=== PATIENT | male | born 1955 | race Caucasian/White ===

== ENCOUNTER → 2016-12-01 | Outpatient (CLI) | payer OTHER ==
[~2016-12-01] MED LIST: ACET325T96 PO; ALBU18002 INH; DONE1TAB26 PO; DOXY-300 PO; FLUT0.0529 NAE; MULTCAP42 PO; OXYM0.0592 NAE; ZNTT/150 PO; nebulizer INH
--- NOTE | 2016-12-01 14:44 | PULMONARY FUNCTION TEST ---
INTERPRETATION: The spirometry reveals mild obstruction with no change in the airflow with the use of albuterol. Reduced vital capacity and force vital capacity suggest a restrictive impairment of severe degree. The FRC is markedly elevated. The study may be erroneous. The diffusion capacity is not measured. This study suggests the patient has a mild degree of obstructive airways disorder with probable marked restrictive disorder. Repeat lung volumes and diffusion capacity would be recommended as clinically warranted.
--- NOTE | 2016-12-02 12:15 | CODING QUERY NO DIAGNOSIS ---
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 Please assist us with providing a diagnosis/symptom for the test(s) below: A diagnosis/symptom was not documented on your Order. A valid diagnosis/symptom is required to bill all insurances. Please remember that we are unable to code a diagnosis of rule out, probable, possible, questionable, or suspected. DOS 12/01/16 Tests that require a diagnosis: * PRE & POST PFT DIAGNOSIS: * PULM FUNCT DIFFUSION DIAGNOSIS: Provider Signature: Date: Thank you Ritika Baldwin Health Information Management Once completed, please kindly fax back to [phone] For questions please call [phone]
== END | disposition home or self-care (01) ==
LOC: C.RC 09:44
PROVIDERS: ATTEND Internal Medicine Pulmonary Disease
DX: Z01.89 Encounter for other specified special examinations (principal)

== ENCOUNTER → 2017-03-01 | Outpatient (CLI) | payer OTHER ==
[2017-03-01 09:47] LABS: BASO % 0.5 %; BASO ABS # 0.04 K/uL (0-0.2); COMPLETE YES; EOS % 2.5 %; HEMATOCRIT 48.4 % (42-52); IG% 1.1 %; LYMPH % 42.4 %; LYMPH ABS # 3.17 K/uL (1.2-3.4); MEAN CELL VOLUME 91.1 fL (80-100); MEAN CORPUSCULAR HEMOGLOBIN 30.1 pg (25-34); MEAN CORPUSCULAR HGB CONC 33.1 g/dl (32-36); MONO % 8.3 %; NEUT % 45.2 %; PLATELET COUNT 215 K/uL (130-400); RED BLOOD COUNT 5.31 M/uL (4.7-6.1); WHITE BLOOD COUNT 7.47 K/uL (4.8-10.8)
[2017-03-01 10:06] LABS: ALB/GLOB RATIO 1.1 (0.9-2); ALKALINE PHOSPHATASE 58 U/L (45-117); AST/SGOT 29 U/L (15-37); BLOOD UREA NITROGEN 12 mg/dl (7-18); BUN/CREATININE RATIO 16.1 (10-20); CALCIUM 9.1 mg/dl (8.5-10.1); CARBON DIOXIDE 35 mmol/L (21-32); CHLORIDE 108 mmol/L (98-107); CREATININE 0.75 mg/dl (0.60-1.40); GLUCOSE 80 mg/dl (70-99); HDL CHOLESTEROL 42 mg/dl; POTASSIUM 4.4 mmol/L (3.5-5.1); SODIUM 146 mmol/L (136-145)
[2017-03-01 10:09] LABS: ALT/SGPT 70 U/L (12-78); CHOLESTEROL 283 mg/dl (0-200); CHOLESTEROL/HDL RATIO 6.7; TRIGLYCERIDES 425 mg/dl (0-150)
== END ==
LOC: C.LABCC 09:15
PROVIDERS: ATTEND Internal Medicine
DX: E78.5 Hyperlipidemia, unspecified (principal); M62.81 Muscle weakness (generalized)

== ENCOUNTER → 2017-07-04 | Outpatient (CLI) | payer OTHER ==
[2017-07-04 12:03] LABS: ALT/SGPT 84 U/L (12-78); BLOOD UREA NITROGEN 13 mg/dl (7-18); BUN/CREATININE RATIO 16.2 (10-20); CALCIUM 9.1 mg/dl (8.5-10.1); CARBON DIOXIDE 33 mmol/L (21-32); CHLORIDE 108 mmol/L (98-107); CHOLESTEROL 179 mg/dl (0-200); CREATININE 0.78 mg/dl (0.60-1.40); GLUCOSE 87 mg/dl (70-99); SODIUM 144 mmol/L (136-145)
[2017-07-04 12:06] LABS: ALB/GLOB RATIO 1.1 (0.9-2); ALKALINE PHOSPHATASE 66 U/L (45-117); AST/SGOT 36 U/L (15-37); CHOLESTEROL/HDL RATIO 4.3; HDL CHOLESTEROL 42 mg/dl; LDL CHOLESTEROL CALCULATED 88 mg/dl; TRIGLYCERIDES 246 mg/dl (0-150); VERY LOW DENSITY LIPOPROT CALC 49 mg/dl
== END | disposition home or self-care (01) ==
LOC: C.LABCC 11:23
PROVIDERS: ATTEND Internal Medicine
DX: E78.5 Hyperlipidemia, unspecified (principal)

== ENCOUNTER → 2017-07-28 | Outpatient (CLI) | payer OTHER ==
[2017-07-28 17:07] LABS: URINE APPEARANCE CLEAR (CLEAR); URINE BILIRUBIN NEG (NEG); URINE COLOR YELLOW; URINE NITRITE NEG (NEG); URINE SPECIFIC GRAVITY 1.022 (1.000-1.030); UROBILINOGEN NEG (NEG)
[2017-07-28 17:12] LABS: MANUAL MICROSCOPIC REQUIRED? NO; REVIEW REQ? NO
== END ==
LOC: C.LABSPEC 16:28
PROVIDERS: ATTEND Internal Medicine
DX: R41.82 Altered mental status, unspecified (principal)

== ENCOUNTER → 2017-07-28 | Outpatient (CLI) | payer OTHER ==
[2017-07-28 23:37] LABS: BASO % 0.3 %; BASO ABS # 0.03 K/uL (0-0.2); COMPLETE YES; EOS % 1.7 %; HEMATOCRIT 47.7 % (42-52); IG% 0.3 %; LYMPH % 29.8 %; LYMPH ABS # 2.57 K/uL (1.2-3.4); MEAN CELL VOLUME 90.7 fL (80-100); MEAN CORPUSCULAR HEMOGLOBIN 29.3 pg (25-34); MEAN CORPUSCULAR HGB CONC 32.3 g/dl (32-36); MEAN PLATELET VOLUME 10.7 fL (7.4-10.4); MONO % 10.2 %; NEUT % 57.7 %; PLATELET COUNT 163 K/uL (130-400); RED BLOOD COUNT 5.26 M/uL (4.7-6.1); WHITE BLOOD COUNT 8.62 K/uL (4.8-10.8)
[2017-07-29 00:02] LABS: ALT/SGPT 107 U/L (12-78); BLOOD UREA NITROGEN 11 mg/dl (7-18); BUN/CREATININE RATIO 15.3 (10-20); CARBON DIOXIDE 30 mmol/L (21-32); CHLORIDE 107 mmol/L (98-107); CREATININE 0.73 mg/dl (0.60-1.40); GLUCOSE 102 mg/dl (70-99); POTASSIUM 3.8 mmol/L (3.5-5.1); SODIUM 144 mmol/L (136-145)
[2017-07-29 00:12] LABS: ALB/GLOB RATIO 0.9 (0.9-2); ALKALINE PHOSPHATASE 67 U/L (45-117); AST/SGOT 69 U/L (15-37)
== END ==
LOC: C.LABCC 11:03
PROVIDERS: ATTEND Internal Medicine
DX: R05 Cough (principal); R29.6 Repeated falls

== ENCOUNTER 2017-12-15 09:34 | Emergency (ER) | payer OTHER ==
[~2017-12-15] VITALS: Ht 165.1 cm; Wt 72.5 kg
[~2017-12-15 09:34] MED LIST changes: +ACET-1693 PO; -ACET325T96 PO; +RANI150T85 PO; -ZNTT/150 PO
[2017-12-15 09:49] VITALS: TEMP 36.9; Ht 165.1 cm; Wt 72.5 kg
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
[2017-12-15 10:06] LABS: BASO % 0.3 %; BASO ABS # 0.02 K/uL (0-0.2); EOS % 3.3 %; EOS ABS # 0.26 K/uL (0-0.5); HEMATOCRIT 51.3 % (42-52); HEMOGLOBIN 17.5 g/dL (14.0-18.0); IG# 0.02 K/uL (0.00-0.02); LYMPH % 28.4 %; LYMPH ABS # 2.21 K/uL (1.2-3.4); MEAN CELL VOLUME 91.4 fL (80-100); MEAN CORPUSCULAR HEMOGLOBIN 31.2 pg (25-34); MEAN CORPUSCULAR HGB CONC 34.1 g/dl (32-36); MEAN PLATELET VOLUME 9.9 fL (7.4-10.4); MONO % 5.3 %; MONO ABS # 0.41 K/uL (0.11-0.59); NEUT % 62.4 %; NEUT ABS # 4.85 K/uL (1.4-6.5); PLATELET COUNT 153 K/uL (130-400); RED CELL DISTRIBUTION WIDTH CV 14.6 % (11.5-14.5); RED CELL DISTRIBUTION WIDTH SD 49.1 fL (36.4-46.3); WHITE BLOOD COUNT 7.77 K/uL (4.8-10.8)
[2017-12-15 10:20] LABS: BLOOD UREA NITROGEN 13 mg/dl (7-18); CREATININE 0.86 mg/dl (0.60-1.40); GLUCOSE 119 mg/dl (70-99)
[2017-12-15 10:21] LABS: ALBUMIN 3.6 gm/dl (3.4-5.0); ALT/SGPT 68 U/L (12-78); CALCIUM 9.5 mg/dl (8.5-10.1); CARBON DIOXIDE 31 mmol/L (21-32); POTASSIUM 3.7 mmol/L (3.5-5.1); SODIUM 141 mmol/L (136-145)
[2017-12-15 10:26] LABS: ALKALINE PHOSPHATASE 60 U/L (45-117); AST/SGOT 35 U/L (15-37)
[2017-12-15 10:40] LABS: PTT PATIENT 24.8 SECONDS (21.0-31.0)
--- NOTE | 2017-12-15 10:46 | DIAGNOSTIC IMAGING REPORT ---
CERVICAL SPINE W/O CT DOSE: 508.86 mGycm HISTORY: Trauma fall, right head injury TECHNIQUE: Multiaxial CT images of the cervical spine were performed and reformatted in the sagittal and coronal plane without the use of contrast. A dose lowering technique was utilized adhering to the principles of ALARA. COMPARISON: 01/27/2016 FINDINGS: Moderate degenerative change throughout the entire cervical region. Cervical scoliosis possibly of the base of muscular spasm. No evidence for compression deformity. Degenerative disc change of the lower cervical region. IMPRESSION: Degenerative change. Muscle spasm with secondary scoliosis. No acute posttraumatic abnormality. The above report was generated using voice recognition software. It may contain grammatical, syntax or spelling errors. Electronically signed by: Ryan Pitts M.D. 12/15/2017 10:45 AM Dictated Date/Time: 12/15/2017 10:43 AM
--- NOTE | 2017-12-15 10:48 | DIAGNOSTIC IMAGING REPORT ---
HEAD WITHOUT CONTRAST (CT) CLINICAL HISTORY: 62 years-old Male with AMS. Acutely altered mental status with recent fall TECHNIQUE: Multiple axial CT images of the head were obtained without contrast. A dose lowering technique was utilized adhering to the principles of ALARA. CT DOSE: 788.63 mGycm COMPARISON: CT cervical spine of same day, CT head 01/25/2016. FINDINGS: No acute intracranial hemorrhage, midline shift, intracranial mass, hydrocephalus, territorial ischemia or abnormal extra-axial collection. Mild atrophy. Ill-defined areas of low-attenuation within the area ventricular white matter suggests chronic microvascular ischemic changes. Vascular calcifications are seen at the level of the skull base. The calvarium is intact. The mastoid air cells, and middle ear cavities are clear. Mild mucoperiosteal thickening of the bilateral maxillary and ethmoid sinuses. Mild rightward bowing and spurring of the nasal septum. Mild posterior scalp soft tissue swelling. IMPRESSION: 1. No acute intracranial abnormality. 2. Mild posterior scalp soft tissue swelling. The above report was generated using voice recognition software. It may contain grammatical, syntax or spelling errors. Electronically signed by: Benji Campuzano M.D. 12/15/2017 10:46 AM Dictated Date/Time: 12/15/2017 10:43 AM
--- NOTE | 2017-12-15 10:54 | DIAGNOSTIC IMAGING REPORT ---
CHEST ONE VIEW PORTABLE CLINICAL HISTORY: AMS dyspnea COMPARISON STUDY: 02/02/2016 FINDINGS: Poor inspiratory volumes. Mild atelectasis left lung base. Lungs otherwise appear clear. Several old left-sided rib fractures. IMPRESSION: Mild atelectasis left base. Otherwise negative study. The above report was generated using voice recognition software. It may contain grammatical, syntax or spelling errors. Electronically signed by: Ryan Pitts M.D. 12/15/2017 10:52 AM Dictated Date/Time: 12/15/2017 10:51 AM
[2017-12-15 10:57] LABS: INFLUENZA B ANTIGEN Neg for Influ B (NEG)
[2017-12-15] MEDS ORDERED: PARO10TA3 PO (11:42)
[2017-12-15] MEDS ORDERED: ATOR-22 PO (11:42)
[2017-12-15] MEDS ORDERED: FLUT0.15 NAE (11:42)
[2017-12-15 12:31] VITALS: BP 117/67; PULSE 64; O2SAT 95
== END 2017-12-15 13:17 | disposition home or self-care (01) ==
LOC: EDBD 09:34 → C.EDB 09:35
DX: R53.1 Weakness (principal); R53.83 Other fatigue; S09.90XA Unspecified injury of head, initial encounter; W19.XXXA Unspecified fall, initial encounter; F03.90 Unspecified dementia, unspecified severity, without behavioral disturbance, psychotic disturbance, mood disturbance, and anxiety; E78.5 Hyperlipidemia, unspecified; F63.9 Impulse disorder, unspecified; G47.33 Obstructive sleep apnea (adult) (pediatric); Z88.0 Allergy status to penicillin; Z83.3 Family history of diabetes mellitus; Z82.49 Family history of ischemic heart disease and other diseases of the circulatory system; Z84.1 Family history of disorders of kidney and ureter

== ENCOUNTER → 2018-01-13 | Outpatient (CLI) | payer OTHER ==
[~2018-01-13] MED LIST changes: +ATOR-22 PO; -DOXY-300 PO; -FLUT0.0529 NAE; +FLUT0.15 NAE; -MULTCAP42 PO; +PARO10TA3 PO; -nebulizer INH
== END ==
LOC: C.LABSPEC 09:59
PROVIDERS: ATTEND Internal Medicine
DX: R50.9 Fever, unspecified (principal)

== ENCOUNTER 2018-02-26 17:58 | Emergency (ER) | payer OTHER ==
[~2018-02-26] VITALS: Ht 162.6 cm; Wt 66.7 kg
[2018-02-26 18:07] VITALS: TEMP 36.7; Ht 162.6 cm; Wt 66.7 kg
[2018-02-26 18:11] VITALS: O2SAT 93
[2018-02-26] MEDS ORDERED: ALBUT/IPRATROP 3MG/0.5MG NEB 3 ML VIAL INH STA (18:13)
[2018-02-26] MEDS ORDERED: SODIUM CHLORIDE 0.9% 1000ML 1,000 ML IV STA (18:13)
--- NOTE | 2018-02-26 18:41 | DIAGNOSTIC IMAGING REPORT ---
CHEST ONE VIEW PORTABLE CLINICAL HISTORY: EVALUATE ALTERED MENTAL STATUS/WEAKNESS mental status change COMPARISON STUDY: 12/15/2017 FINDINGS: Chronic atelectatic change left base. Mild stable cardiomegaly. Lungs otherwise appear clear. Diaphragms are smooth. Inspiratory volumes are diminished. IMPRESSION: Chronic change. Mild stable cardiomegaly. No acute process. The above report was generated using voice recognition software. It may contain grammatical, syntax or spelling errors. Electronically signed by: Ryan Pitts M.D. 02/26/2018 6:39 PM Dictated Date/Time: 02/26/2018 6:39 PM
[2018-02-26 18:42] LABS: BASO % 0.2 %; BASO ABS # 0.02 K/uL (0-0.2); EOS % 1.7 %; EOS ABS # 0.16 K/uL (0-0.5); HEMATOCRIT 48.6 % (42-52); HEMOGLOBIN 16.5 g/dL (14.0-18.0); IG# 0.03 K/uL (0.00-0.02); LYMPH % 27.9 %; LYMPH ABS # 2.56 K/uL (1.2-3.4); MEAN CELL VOLUME 90.7 fL (80-100); MEAN CORPUSCULAR HEMOGLOBIN 30.8 pg (25-34); MONO % 9.7 %; MONO ABS # 0.89 K/uL (0.11-0.59); NEUT % 60.2 %; NEUT ABS # 5.53 K/uL (1.4-6.5); PLATELET COUNT 177 K/uL (130-400); RED CELL DISTRIBUTION WIDTH CV 14.8 % (11.5-14.5); RED CELL DISTRIBUTION WIDTH SD 48.8 fL (36.4-46.3); WHITE BLOOD COUNT 9.19 K/uL (4.8-10.8)
--- NOTE | 2018-02-26 18:51 | DIAGNOSTIC IMAGING REPORT ---
HEAD WITHOUT CONTRAST (CT) CT DOSE: 614.27 mGy.cm HISTORY: Trauma. Pain. EVALUATE ALTERED MENTAL STATUS/WEAKNESS TECHNIQUE: Multiaxial CT images of the head were performed without the use of intravenous contrast. A dose lowering technique was utilized adhering to the principles of ALARA. Comparison: 12/15/2017 Findings: The paranasal sinuses and mastoid air cells are clear. Fracture tip nasal bones most likely pre-existing. Intracranial contents are unremarkable. No acute intracranial hemorrhage. No midline shift. Mild age-related atrophy and chronic small vessel change. Impression: No acute intracranial abnormality. Chronic and age-related change. Pre-existing fracture of the nasal bones. The above report was generated using voice recognition software. It may contain grammatical, syntax or spelling errors. Electronically signed by: Ryan Pitts M.D. 02/26/2018 6:50 PM Dictated Date/Time: 02/26/2018 6:48 PM
[2018-02-26 19:03] LABS: ALBUMIN 3.5 gm/dl (3.4-5.0); ALT/SGPT 73 U/L (12-78); AST/SGOT 46 U/L (15-37); BLOOD UREA NITROGEN 15 mg/dl (7-18); CALCIUM 9.1 mg/dl (8.5-10.1); CARBON DIOXIDE 33 mmol/L (21-32); CREATININE 0.87 mg/dl (0.60-1.40); GLUCOSE 113 mg/dl (70-99); POTASSIUM 4.3 mmol/L (3.5-5.1); PTT PATIENT 24.7 SECONDS (21.0-31.0); SODIUM 142 mmol/L (136-145)
[2018-02-26 19:08] LABS: ALKALINE PHOSPHATASE 84 U/L (45-117); CKMB 6.7 ng/ml (0.5-3.6); TOTAL PROTEIN 7.1 gm/dl (6.4-8.2)
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
[2018-02-26 20:17] VITALS: BP 101/70; PULSE 70; O2SAT 94
== END 2018-02-26 20:17 ==
LOC: EDBD 17:58 → C.EDC 18:07
DX: S00.01XA Abrasion of scalp, initial encounter (principal); W01.10XA Fall on same level from slipping, tripping and stumbling with subsequent striking against unspecified object, initial encounter; R05 Cough; Z87.820 Personal history of traumatic brain injury; E78.00 Pure hypercholesterolemia, unspecified; G47.33 Obstructive sleep apnea (adult) (pediatric); F63.9 Impulse disorder, unspecified; Z87.01 Personal history of pneumonia (recurrent); Z80.9 Family history of malignant neoplasm, unspecified; Z83.3 Family history of diabetes mellitus; Z82.49 Family history of ischemic heart disease and other diseases of the circulatory system; Z84.1 Family history of disorders of kidney and ureter; Z87.891 Personal history of nicotine dependence; Z79.899 Other long term (current) drug therapy; Z88.0 Allergy status to penicillin

== ENCOUNTER → 2018-03-01 | Outpatient (CLI) | payer OTHER | LOC: C.LABSPEC 16:42 → C.LABCC 16:43 | PROVIDERS: ATTEND Internal Medicine | DX: R41.82 Altered mental status, unspecified (principal); R29.6 Repeated falls ==

== ENCOUNTER 2018-11-20 16:01 | Inpatient (IN) ==
[2018-11-20] MEDS ORDERED: ALBUTEROL 0.083% NEBU SOLN 3 ML VIAL NEB STA (16:11)
--- NOTE | 2018-11-20 16:49 | XRay Report ---
XR chest 1V portable CLINICAL HISTORY: Dyspnea COMPARISON STUDY: Chest radiograph February 26, 2018. FINDINGS: There is no pneumothorax. Small left pleural effusion is noted. Cardiomediastinal silhouett e is stable. Bibasilar consolidation is noted. There is no radiographic evidence for pulmonary edema. There are old left rib fractures. IMPRESSION: 1. Bibasilar consolidation which favors pneumonia. Atelectasis could appear similar although is consi dered less likely. Radiographic follow up to ensure resolution is recommended. 2. Small left pleural effusion. Electronically signed by: Steven Duff M.D. 11/20/2018 4:48 PM
[2018-11-20] MEDS ORDERED: CEFEPIME 1,000 MG in SYRINGE 0 ML IV STA (17:00)
[2018-11-20] MEDS ORDERED: LEVOFLOXACIN/D5W 750 MG/150 ML BAG IV SCH (17:00)
[2018-11-20 17:16] LABS: Basophils # (auto) 0.02 K/uL (0-0.2); Basophils % (auto) 0.3 %; Eosinophils # (auto) 0.07 K/uL (0-0.5); Eosinophils % (auto) 0.9 %; Hematocrit (blood only) 51.1 % (42-52); Hemoglobin 16.5 g/dL (14.0-18.0); Immature Granulocytes # (auto) 0.03 K/uL (0.00-0.02); Immature Granulocytes % (auto) 0.4 %; Lymphocytes # (auto) 1.11 K/uL (1.2-3.4); Lymphocytes % (auto) 14.4 %; Mean Corpuscular Hgb Conc 32.3 g/dL (32-36); Mean Corpuscular Volume 90.8 fL (80-100); Mean Platelet Volume 9.5 fL (7.4-10.4); Monocytes # (auto) 0.71 K/uL (0.11-0.59); Monocytes % (auto) 9.2 %; Neutrophils # (auto) 5.78 K/uL (1.4-6.5); Neutrophils % (auto) 74.8 %; Platelet Count 111 K/uL (130-400); RDW Coefficient of Variation 14.7 % (11.5-14.5); RDW Standard Deviation 49.1 fL (36.4-46.3); Red Blood Count 5.63 M/uL (4.7-6.1); White Blood Count 7.72 K/uL (4.8-10.8)
[2018-11-20 17:28] LABS: iSTAT Hemoglobin 17.3 g/dl (14.0-18.0); iSTAT Ionized Calcium 1.2 mmol/l (1.12-1.32)
[2018-11-20 17:28] LABS: Base Excess VBG 7.5 mEq/L; HCO3 VBG 38 mmol/L; Oxygen Saturation VBG < 60.0 %; PCO2 VBG 76 mmHg (38-50); PO2 VBG 28 mmHg; Partial Thromboplastin Ratio 0.9; Partial Thromboplastin Time 23.3 Seconds (21.0-31.0); Prothrombin Time 10.3 Seconds (9.0-12.0); pH VBG 7.31 (7.36-7.41)
[2018-11-20 17:34] LABS: Albumin Level 3.3 gm/dl (3.4-5.0); BUN Creatinine Ratio 15.4 (10-20); Calcium 9.3 mg/dl (8.5-10.1); Creatinine Clr Calc Pharmacy 92.8 ml/min; Est GFR (African American) 118.1; Est GFR (Non-African American) 101.9; Potassium 3.2 mmol/L (3.5-5.1)
[2018-11-20 17:36] LABS: Albumin Globulin Ratio 0.9 (0.9-2); Bilirubin,Total 0.6 mg/dl (0.2-1); Globulin 3.6 gm/dl (2.5-4.0); Total Protein 6.9 gm/dl (6.4-8.2); Troponin I 0.026 ng/ml (0-0.045)
[2018-11-20 17:37] LABS: Appearance Urine Clear (Clear); Bilirubin Urine Negative (Negative); Color Urine Yellow; Glucose Urine UA Negative (Negative); Ketones Urine Negative (Negative); Leukocyte Esterase Urine Negative (Negative); Nitrite Urine Negative (Negative); Protein Urine Negative (Negative); Specific Gravity Urine 1.011 (1.000-1.030); Urobilinogen Urine Negative (Negative); pH Urine 6.5 (4.5-7.5)
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
--- NOTE | 2018-11-20 18:05 | CT Scan Report ---
CT OF THE CERVICAL SPINE WITHOUT CONTRAST CLINICAL HISTORY: Neck pain following fall. COMPARISON STUDY: Cervical spine CT December 15, 2017. TECHNIQUE: Helical axial images of the cervical spine were obtained without IV contrast. Sagittal a nd coronal reconstructions were viewed. Automated exposure control was utilized for the study. A do se lowering technique was utilized adhering to the principles of ALARA. FINDINGS: Note is made of chronic subluxation of the left temporomandibular joint. This is unchanged. The craniocervical junction is intact. There is no acute cervical spine fracture. Facet joints are i ntact. There is no prevertebral edema. There is marked disc space narrowing with osteophytosis at C6- C7. There is moderate to severe multilevel facet arthrosis. IMPRESSION: 1. No acute cervical spine fracture or subluxation. 2. Moderate to severe multilevel degenerative changes of the cervical spine. 3. 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 Electronically signed by: Steven Duff M.D. 11/20/2018 6:03 PM
[2018-11-20 18:12] LABS: Influenza A virus by PCR Neg for Influ A (Neg); Influenza B virus by PCR Neg for Influ B (Neg)
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
[2018-11-20] MEDS ORDERED: ALBUT/IPRATROP 3MG/0.5MG NEB 3 ML VIAL ONE (19:24)
[2018-11-20] MEDS ORDERED: POTASSIUM CHLORIDE / WTR 10 MEQ/100 ML PLCT IV STA (19:33)
[2018-11-20 20:46] LABS: Magnesium 2.3 mg/dl (1.8-2.4)
[2018-11-20] MEDS ORDERED: ALBUT/IPRATROP 3MG/0.5MG NEB 3 ML VIAL NEB STA (21:01)
[2018-11-20] MEDS ORDERED: BISACODYL 10 MG SUPP PR PRN (21:29)
[2018-11-20] MEDS ORDERED: ACETAMINOPHEN 325 MG TAB PO PRN (21:29)
[2018-11-20] MEDS ORDERED: ONDANSETRON INJ 2 MG/ML 2 ML VIAL IV PRN (21:29)
[2018-11-20] MEDS ORDERED: ATORVASTATIN 20 MG TAB PO SCH (21:29)
[2018-11-20] MEDS ORDERED: PARoxetine HCl 10 MG TAB PO SCH (21:29)
--- NOTE | 2018-11-20 22:00 | Emergency Department Note ---
Entered by Tamika Oneill acting as a scribe for Roland Camacho DO History of Present Illness General Chief complaint: Shortness of Breath/Dyspnea Stated complaint: SOB Time Seen by Provider: 11/20/18 16:01 Source: patient and EMS Mode of arrival: EMS Limitations: no limitations History of Present Illness Provider complaint: shortness of breath Onset (ago): day(s) 2 Location: chest Pain Consistency: + other (worsening) Quality: + other (SOB) Associated symptoms: + denies other symptoms (dysuria, AMS), + chest pain, + cough and + other (rhinorrhea) The patient is a 63 year old male who presents to the Emergency Room with complaints of a worsening shortness of breath that began 2 days ago. EMS reports that the patient uses 2 L of nasal cannula oxygen at baseline but it is unknown why. Per EMS, the patient has been acting baseline. EMS also states that the patient experienced 3 falls earlier today and had x-rays performed, but results are unknown. The patient denies any dysuria but notes he has had a cough, chest pain and rhinorrhea. Home Medications Home Medications Medication Instructions Recorded Confirmed Type Prune/Stewed Prunes 1 dose PO DIRECTED PRN 11/20/18 11/20/18 History acetaminophen 650 mg PO Q4H PRN 11/20/18 11/20/18 History albuterol sulfate [ProAir HFA] 2 puff INHALATION QID 11/20/18 11/20/18 History atorvastatin 20 mg PO PM 11/20/18 11/20/18 History bisacodyl [Dulcolax (bisacodyl)] 10 mg TX DIRECTED PRN 11/20/18 11/20/18 History donepezil 10 mg PO HS 11/20/18 11/20/18 History fludrocortisone 0.1 mg PO BID 11/20/18 11/20/18 History fluticasone 2 spray INTRANASAL QAM 11/20/18 11/20/18 History magnesium hydroxide [Milk of 30 ml PO DIRECTED PRN 11/20/18 11/20/18 History Magnesia] oxymetazoline [Nasal Decongestant 2 spray INTRANASAL QAM 11/20/18 11/20/18 History (oxymetazl)] paroxetine HCl [Paxil] 10 mg PO HS 11/20/18 11/20/18 History ranitidine HCl 150 mg PO HS 11/20/18 11/20/18 History sodium phosphates [Fleet Enema] 1 ea TX DIRECTED PRN 11/20/18 11/20/18 History Allergies Allergy/AdvReac Type Severity Reaction Status Date / Time Penicillins Allergy Unknown Unknown Verified 11/20/18 16:45 Past Med/Surg History Medical History TBI (traumatic brain injury) (Chronic) Dementia (Chronic) Impulse control disorder, unspecified (Chronic) SAJI on CPAP (Chronic) HLD (hyperlipidemia) (Chronic) Chronic respiratory failure with hypoxia 2 L NC O2 Surgical History H/O esophagogastroduodenoscopy (Chronic) H/O colonoscopy (Chronic) History of tracheostomy Family History Other Essential hypertension Heart disease Kidney stones Lung disease Social History marital status details: single; briefly earlier in life; no children Current Living Situation: Intermediate current occupational status: disabled Feels Safe at Home: Yes Smoking Status: Unknown if ever smoked Preferred Language: Bhutanese Communication Ability: CONFUSED Review of Systems See HPI for pertinent positives & negatives. and A total of 10 systems reviewed and were otherwise negative Physical Exam Vital Signs Vital Signs - 24 hr 11/20/18 16:00 11/20/18 16:30 11/20/18 16:32 Temperature Temperature Source Sepsis Recent Fever Within 48 Hours No Sepsis New/Unexplained Change in Mental Status No Sepsis Action Taken by Nursing No Action Required Pulse Rate 76 Pulse Rate [Left Finger] Pulse Rhythm [Left Finger] Respiratory Rate 22 Respiratory Effort / Characteristics Non-Labored Non-Labored Respiratory Depth Normal Respiratory Pattern Regular Blood Pressure 144/85 H Blood Pressure [Left Arm] Blood Pressure Mean 104 Blood Pressure Mean [Left Arm] Pulse Oximetry 96 94 Oxygen Delivery Method Non-rebreather Oxymask Oxygen Flow Rate 10 6 Fraction of Inspired Oxygen SaO2/FiO2 Ratio 11/20/18 16:33 11/20/18 18:19 11/20/18 19:00 Temperature Temperature Source Sepsis Recent Fever Within 48 Hours Sepsis New/Unexplained Change in Mental Status Sepsis Action Taken by Nursing Pulse Rate Pulse Rate [Left Finger] 81 94 H Pulse Rhythm [Left Finger] Regular Respiratory Rate 25 H 28 H Respiratory Effort / Characteristics Non-Labored Respiratory Depth Normal Respiratory Pattern Regular Blood Pressure Blood Pressure [Left Arm] 146/87 H 121/71 Blood Pressure Mean Blood Pressure Mean [Left Arm] 106 87 Pulse Oximetry 94 93 92 Oxygen Delivery Method Oxymask Oxymask Oxymask Oxygen Flow Rate 6 6 6 Fraction of Inspired Oxygen SaO2/FiO2 Ratio 11/20/18 19:34 11/20/18 20:00 11/20/18 20:52 Temperature Temperature Source Sepsis Recent Fever Within 48 Hours Sepsis New/Unexplained Change in Mental Status Sepsis Action Taken by Nursing Pulse Rate 97 H 112 H Pulse Rate [Left Finger] 96 H 104 H Pulse Rhythm [Left Finger] Respiratory Rate 24 17 25 H Respiratory Effort / Characteristics Non-Labored Spontaneous Respiratory Depth Respiratory Pattern Blood Pressure 139/81 Blood Pressure [Left Arm] 144/89 H Blood Pressure Mean Blood Pressure Mean [Left Arm] 107 Pulse Oximetry 94 92 90 Oxygen Delivery Method BiPAP BiPAP BiPAP Oxygen Flow Rate Fraction of Inspired Oxygen 70 SaO2/FiO2 Ratio 11/20/18 21:10 Temperature 37.4 C Temperature Source Oral Sepsis Recent Fever Within 48 Hours Sepsis New/Unexplained Change in Mental Status Sepsis Action Taken by Nursing Pulse Rate Pulse Rate [Left Finger] 85 Pulse Rhythm [Left Finger] Respiratory Rate 27 H Respiratory Effort / Characteristics SOB on Exertion Respiratory Depth Respiratory Pattern Blood Pressure Blood Pressure [Left Arm] 136/98 Blood Pressure Mean Blood Pressure Mean [Left Arm] 110 Pulse Oximetry 96 Oxygen Delivery Method BiPAP Oxygen Flow Rate Fraction of Inspired Oxygen 100 SaO2/FiO2 Ratio 96 GENERAL: Sitting up in bed, chronically ill appearing, well nourished, moderate distress, and malnourished. HEAD: normal cephalic, atraumatic EYE EXAM: normal conjunctiva. OROPHARYNX: no exudate, no erythema, lips, buccal mucosa, and tongue normal and mucous membranes are moist EARS: TMs clear b/l NECK: supple, no nuchal rigidity, no adenopathy, non-tender CHEST: stable to compression anteriorly and posteriorly LUNGS: Poor air movement with diffuse rhonchi bilaterally. HEART: no murmurs, S1 normal and S2 normal ABDOMEN: abdomen soft, non-tender, normo-active bowel sounds, no masses, no rebound or guarding. PELVIS: stable to compression anteriorly and posteriorly BACK: Back is symmetrical on inspection and there is no deformity, no midline tenderness, no CVA tenderness. UPPER EXTREMITIES: full active and passive range of motion of all joints without tenderness to palpation LOWER EXTREMITIES: full active and passive range of motion of all joints without tenderness to palpation NEURO EXAM: Awake, alert and oriented to person place and time, moving all extremities, non-focal Course ED COURSE: Vital signs were reviewed and are within normal limits. The patients medical record was reviewed The above diagnostic studies were performed and reviewed. ED treatments and interventions as stated above. 1602: The patient was evaluated in room C4. A complete history and physical examination was performed. 1832: Upon reevaluation, the patient appeared to have improvement of his symptoms.. I discussed my findings with the patient and he understands and agrees with the treatment plan. Based on the patients age, coexisting illnesses, exam and lab findings the decision to treat as an inpatient was made. The patient remained stable while under my care. The patient will be evaluated for further management. Administered Medications Discontinued Medications Albuterol (Ventolin 0.083% 2.5mg/3ml) 5 mg NEB NOW STA Stop: 11/20/18 16:12 Last Admin: 11/20/18 17:09 Dose: 5 mg Levofloxacin/Dextrose (Levaquin/D5w) 750 mg in 150 mls @ 100 mls/hr IV Q24H MIAH Stop: 11/22/18 16:59 Last Infusion: 11/20/18 20:17 Dose: 0 mls/hr Admin: 11/20/18 18:21 Dose: 100 mls/hr Cefepime HCl 1,000 mg/ Syringe 11.3 mls @ 5.5 mls/min IV NOW STA Stop: 11/20/18 17:02 Last Admin: 11/20/18 18:21 Dose: 5.5 mls/min Potassium Chloride (K Ruddy / Wtr) 10 meq in 100 mls @ 100 mls/hr IV Q1H STA Stop: 11/20/18 20:32 Last Admin: 11/20/18 20:33 Dose: 100 mls/hr Methylprednisolone (Solumedrol) Confirm Administered Dose 40 mg .ROUTE .STK-MED ONE Stop: 11/20/18 20:30 Last Admin: 11/20/18 20:34 Dose: 40 mg Medical Decision Making Differential Diagnosis Differential diagnoses includes but is not limited to pneumonia, bronchitis, COPD/Asthma exacerbation, pneumothorax, pulmonary embolism, congestive heart failure, acute coronary syndrome Medical Records Attestation: I reviewed the patient's medical records. Home Medications Current Medication List: was personally reviewed by me Laboratory Data Attestation: I reviewed the patient's lab results. Result diagrams: 11/20/18 17:01 11/20/18 17:01 Lab Results 11/20/18 11/20/18 11/20/18 Range/Units 17:00 17:01 17:01 WBC (4.8-10.8) K/uL RBC (4.7-6.1) M/uL Hgb (14.0-18.0) g/dL POC Hgb (14.0-18.0) g/dl Hct (42-52) % POC Hct (42-52) % MCV (80-100) fL MCH (25-34) pg MCHC (32-36) g/dL RDW Std Deviation (36.4-46.3) fL RDW Coeff of Kilo (11.5-14.5) % Plt Count (130-400) K/uL MPV (7.4-10.4) fL Immature Gran % (Auto) % Neut % (Auto) % Lymph % (Auto) % [place] % (Auto) % Eos % (Auto) % Baso % (Auto) % Immature Gran # (Auto) (0.00-0.02) K/uL Neut # (Auto) (1.4-6.5) K/uL Lymph # (Auto) (1.2-3.4) K/uL [place] # (Auto) (0.11-0.59) K/uL Eos # (Auto) (0-0.5) K/uL Baso # (Auto) (0-0.2) K/uL PT (9.0-12.0) Seconds INR (0.9-1.1) APTT (21.0-31.0) Seconds PTT Ratio VBG pH 7.31 L (7.36-7.41) VBG pCO2 76 H (38-50) mmHg VBG pO2 28 mmHg VBG HCO3 38 mmol/L VBG O2 Saturation < 60.0 % VBG Base Excess 7.5 mEq/L Barometric Pressure 742.9 mm/Hg POC Sodium (135-144) mEq/L Sodium (136-145) mmol/L POC Potassium (3.3-5.0) mEq/L Potassium (3.5-5.1) mmol/L POC Chloride (101-112) mEq/L Chloride (98-107) mmol/L Carbon Dioxide (21-32) mmol/L POC Total CO2 (24-31) mEq/l Anion Gap (3-11) POC Anion Gap (16-25) mmol/L POC BUN (7-18) mg/dl BUN (7-18) mg/dl Creatinine (0.6-1.4) mg/dl POC Creatinine (0.6-1.3) mg/dl Est Cr Clr Drug Dosing ml/min Est GFR ( Amer) Est GFR (Non-Af Amer) BUN/Creatinine Ratio (10-20) Glucose (70-99) mg/dl POC Glucose (other) (70-99) mg/dl Calcium (8.5-10.1) mg/dl POC Ioniz Calcium Sandoval (1.12-1.32) mmol/l Magnesium (1.8-2.4) mg/dl Total Bilirubin (0.2-1) mg/dl AST (15-37) U/L ALT (12-78) U/L Alkaline Phosphatase (45-117) U/L Total Creatine Kinase (39-308) U/L Troponin I Cancelled Total Protein (6.4-8.2) gm/dl Albumin (3.4-5.0) gm/dl Globulin (2.5-4.0) gm/dl Albumin/Globulin Ratio (0.9-2) Urine Color Yellow Urine Appearance Clear (Clear) Urine pH 6.5 (4.5-7.5) Ur Specific [place] 1.011 (1.000-1.030) Urine Protein Negative (Negative) Urine Glucose (UA) Negative (Negative) Urine Ketones Negative (Negative) Urine Blood Negative (Negative) Urine Nitrite Negative (Negative) Urine Bilirubin Negative (Negative) Urine Urobilinogen Negative (Negative) Ur Leukocyte Esterase Negative (Negative) Influenza Type A (PCR) (Neg) Influenza Type B (PCR) (Neg) 11/20/18 11/20/18 11/20/18 Range/Units 17:01 17:01 17:01 WBC 7.72 (4.8-10.8) K/uL RBC 5.63 (4.7-6.1) M/uL Hgb 16.5 (14.0-18.0) g/dL POC Hgb (14.0-18.0) g/dl Hct 51.1 (42-52) % POC Hct (42-52) % MCV 90.8 (80-100) fL MCH 29.3 (25-34) pg MCHC 32.3 (32-36) g/dL RDW Std Deviation 49.1 H (36.4-46.3) fL RDW Coeff of Kilo 14.7 H (11.5-14.5) % Plt Count 111 L (130-400) K/uL MPV 9.5 (7.4-10.4) fL Immature Gran % (Auto) 0.4 % Neut % (Auto) 74.8 % Lymph % (Auto) 14.4 % [place] % (Auto) 9.2 % Eos % (Auto) 0.9 % Baso % (Auto) 0.3 % Immature Gran # (Auto) 0.03 H (0.00-0.02) K/uL Neut # (Auto) 5.78 (1.4-6.5) K/uL Lymph # (Auto) 1.11 L (1.2-3.4) K/uL [place] # (Auto) 0.71 H (0.11-0.59) K/uL Eos # (Auto) 0.07 (0-0.5) K/uL Baso # (Auto) 0.02 (0-0.2) K/uL PT 10.3 (9.0-12.0) Seconds INR 1.0 (0.9-1.1) APTT 23.3 (21.0-31.0) Seconds PTT Ratio 0.9 VBG pH (7.36-7.41) VBG pCO2 (38-50) mmHg VBG pO2 mmHg VBG HCO3 mmol/L VBG O2 Saturation % VBG Base Excess mEq/L Barometric Pressure mm/Hg POC Sodium (135-144) mEq/L Sodium 143 (136-145) mmol/L POC Potassium (3.3-5.0) mEq/L Potassium 3.2 L (3.5-5.1) mmol/L POC Chloride (101-112) mEq/L Chloride 101 (98-107) mmol/L Carbon Dioxide 35 H (21-32) mmol/L POC Total CO2 (24-31) mEq/l Anion Gap 8.0 (3-11) POC Anion Gap (16-25) mmol/L POC BUN (7-18) mg/dl BUN 11 (7-18) mg/dl Creatinine 0.70 (0.6-1.4) mg/dl POC Creatinine (0.6-1.3) mg/dl Est Cr Clr Drug Dosing 92.8 ml/min Est GFR ( Amer) 118.1 Est GFR (Non-Af Amer) 101.9 BUN/Creatinine Ratio 15.4 (10-20) Glucose 100 H (70-99) mg/dl POC Glucose (other) (70-99) mg/dl Calcium 9.3 (8.5-10.1) mg/dl POC Ioniz Calcium Sandoval (1.12-1.32) mmol/l Magnesium (1.8-2.4) mg/dl Total Bilirubin 0.6 (0.2-1) mg/dl AST 61 H (15-37) U/L ALT 65 (12-78) U/L Alkaline Phosphatase 59 (45-117) U/L Total Creatine Kinase (39-308) U/L Troponin I 0.026 Total Protein 6.9 (6.4-8.2) gm/dl Albumin 3.3 L (3.4-5.0) gm/dl Globulin 3.6 (2.5-4.0) gm/dl Albumin/Globulin Ratio 0.9 (0.9-2) Urine Color Urine Appearance (Clear) Urine pH (4.5-7.5) Ur Specific [place] (1.000-1.030) Urine Protein (Negative) Urine Glucose (UA) (Negative) Urine Ketones (Negative) Urine Blood (Negative) Urine Nitrite (Negative) Urine Bilirubin (Negative) Urine Urobilinogen (Negative) Ur Leukocyte Esterase (Negative) Influenza Type A (PCR) (Neg) Influenza Type B (PCR) (Neg) 11/20/18 11/20/18 11/20/18 Range/Units 17:15 17:25 20:04 WBC (4.8-10.8) K/uL RBC (4.7-6.1) M/uL Hgb (14.0-18.0) g/dL POC Hgb 17.3 (14.0-18.0) g/dl Hct (42-52) % POC Hct 51 (42-52) % MCV (80-100) fL MCH (25-34) pg MCHC (32-36) g/dL RDW Std Deviation (36.4-46.3) fL RDW Coeff of Kilo (11.5-14.5) % Plt Count (130-400) K/uL MPV (7.4-10.4) fL Immature Gran % (Auto) % Neut % (Auto) % Lymph % (Auto) % [place] % (Auto) % Eos % (Auto) % Baso % (Auto) % Immature Gran # (Auto) (0.00-0.02) K/uL Neut # (Auto) (1.4-6.5) K/uL Lymph # (Auto) (1.2-3.4) K/uL [place] # (Auto) (0.11-0.59) K/uL Eos # (Auto) (0-0.5) K/uL Baso # (Auto) (0-0.2) K/uL PT (9.0-12.0) Seconds INR (0.9-1.1) APTT (21.0-31.0) Seconds PTT Ratio VBG pH (7.36-7.41) VBG pCO2 (38-50) mmHg VBG pO2 mmHg VBG HCO3 mmol/L VBG O2 Saturation % VBG Base Excess mEq/L Barometric Pressure mm/Hg POC Sodium 143 (135-144) mEq/L Sodium (136-145) mmol/L POC Potassium 3.5 (3.3-5.0) mEq/L Potassium (3.5-5.1) mmol/L POC Chloride 96 L (101-112) mEq/L Chloride (98-107) mmol/L Carbon Dioxide (21-32) mmol/L POC Total CO2 38 H (24-31) mEq/l Anion Gap (3-11) POC Anion Gap 14.0 L (16-25) mmol/L POC BUN 12 (7-18) mg/dl BUN (7-18) mg/dl Creatinine (0.6-1.4) mg/dl POC Creatinine 0.7 (0.6-1.3) mg/dl Est Cr Clr Drug Dosing ml/min Est GFR ( Amer) Est GFR (Non-Af Amer) BUN/Creatinine Ratio (10-20) Glucose (70-99) mg/dl POC Glucose (other) 107 H (70-99) mg/dl Calcium (8.5-10.1) mg/dl POC Ioniz Calcium Sandoval 1.20 (1.12-1.32) mmol/l Magnesium 2.3 (1.8-2.4) mg/dl Total Bilirubin (0.2-1) mg/dl AST (15-37) U/L ALT (12-78) U/L Alkaline Phosphatase (45-117) U/L Total Creatine Kinase 349 H (39-308) U/L Troponin I Total Protein (6.4-8.2) gm/dl Albumin (3.4-5.0) gm/dl Globulin (2.5-4.0) gm/dl Albumin/Globulin Ratio (0.9-2) Urine Color Urine Appearance (Clear) Urine pH (4.5-7.5) Ur Specific [place] (1.000-1.030) Urine Protein (Negative) Urine Glucose (UA) (Negative) Urine Ketones (Negative) Urine Blood (Negative) Urine Nitrite (Negative) Urine Bilirubin (Negative) Urine Urobilinogen (Negative) Ur Leukocyte Esterase (Negative) Influenza Type A (PCR) Neg for Influ A (Neg) Influenza Type B (PCR) Neg for Influ B (Neg) Imaging Data Radiologist's Impression: Radiology results as stated below per my review and the radiologist's interpretation: XR chest 1V portable CLINICAL HISTORY: Dyspnea COMPARISON STUDY: Chest radiograph February 26, 2018. FINDINGS: There is no pneumothorax. Small left pleural effusion is noted. Cardiomediastinal silhouette is stable. Bibasilar consolidation is noted. There is no radiographic evidence for pulmonary edema. There are old left rib fractures. IMPRESSION: 1. Bibasilar consolidation which favors pneumonia. Atelectasis could appear similar although is considered less likely. Radiographic follow up to ensure resolution is recommended. 2. Small left pleural effusion. Electronically signed by: Steven Duff M.D. 11/20/2018 4:[address] OF THE CERVICAL SPINE WITHOUT CONTRAST CLINICAL HISTORY: Neck pain following fall. COMPARISON STUDY: Cervical spine CT December 15, 2017. TECHNIQUE: Helical axial images of the cervical spine were obtained without IV contrast. Sagittal and coronal reconstructions were viewed. Automated exposure control was utilized for the study. A dose lowering technique was utilized adhering to the principles of ALARA. FINDINGS: Note is made of chronic subluxation of the left temporomandibular joint. This is unchanged. The craniocervical junction is intact. There is no acute cervical spine fracture. Facet joints are intact. There is no prevertebral edema. There is marked disc space narrowing with osteophytosis at C6-C7. There is moderate to severe multilevel facet arthrosis. IMPRESSION: 1. No acute cervical spine fracture or subluxation. 2. Moderate to severe multilevel degenerative changes of the cervical spine. 3. 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 Electronically signed by: Steven Duff M.D. 11/20/2018 6:[address] head/brain wo con CLINICAL HISTORY: Head pain status post trauma COMPARISON STUDY: 02/26/2018 TECHNIQUE: Axial CT of the brain is performed from the vertex to the skull base. IV contrast was not administered for this examination. A dose lowering technique was utilized adhering to the principles of ALARA. CT DOSE: FINDINGS: No intra or extra-axial mass lesions are visualized. There is no CT evidence of acute cortical infarction. There is no evidence of midline shift. There is no acute hemorrhage. No calvarial fractures are visualized. There are patchy white matter hypodensities likely on a small vessel basis. There is no evidence of pathologic ventricular dilatation. There is no evidence of acute sinusitis. There is mild left back to sinus polypoid mucosal thickening. There is chronic deformity of the left TMJ with probable mild subluxation IMPRESSION: 1. No acute intracranial findings. Electronically signed by: Salbador Mckeon M.D. 11/20/2018 6:03 PM ECG Data Attestation: I personally reviewed and interpreted this ECG as follows: Indication: SOB/dyspnea Rate (beats per minute): 72 Rhythm: sinus rhythm Findings: + other (normal axis); no PVC Blood Pressure Blood Pressure Findings: Elevated blood pressure Blood Pressure Disposition: further management by hospitalist JULIO CESAR Rivera Patient is a 63-year-old male brought in by EMS with a history of multiple falls and hypoxia. Chronically on 2 L but requiring 4-5 as he was hypoxic. Patient was tachypneic. Labs were obtained and showed no significant leukocytosis or anemia. INR was unremarkable. VBG with pH 7.31 and a CO2 of 76. BMP with mild hypokalemia. LFTs and troponin are fairly unremarkable. UA was negative. Influenza was negative. Chest x-ray supporting pneumonia. Patient remained on oxygen mask. Patient was updated bedside given IV Rocephin , cefepime, nebulizers and 2 L IV normal saline. Patient was updated bedside admitted to the hospitalist for further workup. Impression & Plan Pneumonia, Hypoxia, Sepsis Discharge Plan Visit Data *Final* Discharge Date/Time: 11/20/18 20:52 Chief Complaint: Shortness of Breath/Dyspnea Stated Complaint: SOB ED Provider: Roland Camacho Discharge Problem: Pneumonia, Hypoxia, Sepsis Patient Disposition: Admitted As Inpatient Discharge Instructions Interventions: ED Discharge Assessment Last Done: 11/20/18 20:52 The scribe's documentation has been prepared under my direction and personally reviewed by me in its entirety. I confirm that the note above accurately reflects all work, treatment, procedures, and medical decision making performed by me.
[2018-11-20 22:32] LABS: Base Excess VBG 8.4 mEq/L; HCO3 VBG 38 mmol/L; Oxygen Saturation VBG < 60.0 %; PCO2 VBG 72 mmHg (38-50); PO2 VBG 27 mmHg; pH VBG 7.34 (7.36-7.41)
[2018-11-20] MEDS: FLUDROCORTISONE ACETATE 0.1 MG TAB PO SCH (22:42)
[2018-11-20] MEDS: NSS + 20MEQ KCL 20 MEQ/1,000 ML BAG IV SCH (23:02)
[2018-11-20] MEDS: metroNIDAZOLE 500 MG/100 ML BAG IV SCH (23:03)
[2018-11-20] MEDS: HEPARIN SOD 5,000 UNIT/0.5 ML VIAL SQ SCH (23:05)
[2018-11-20] MEDS: ALBUT/IPRATROP 3MG/0.5MG NEB 3 ML VIAL NEB SCH (23:08)
[2018-11-20] MEDS ORDERED: ACETAMINOPHEN 650 MG SUPP PR PRN (23:53)
[2018-11-21] MEDS ORDERED: INFLUENZA VIRUS QUAD VACCINE 0.5 ML SYR IM ONE (00:45)
[2018-11-21] MEDS ORDERED: INFLUENZA ADMINISTRATION CHARGE ONE (00:45)
[2018-11-21] MEDS: CEFEPIME 1,000 MG in SYRINGE 0 ML IV SCH ×2 (02:34→14:00)
[2018-11-21] MEDS: metroNIDAZOLE 500 MG/100 ML BAG IV SCH ×3 (05:51→21:55)
[2018-11-21 06:30] LABS: Hematocrit (blood only) 46.3 % (42-52); Hemoglobin 15.1 g/dL (14.0-18.0); Mean Corpuscular Hgb Conc 32.6 g/dL (32-36); Mean Corpuscular Volume 90.6 fL (80-100); Mean Platelet Volume 9.4 fL (7.4-10.4); Platelet Count 100 K/uL (130-400); RDW Coefficient of Variation 14.7 % (11.5-14.5); RDW Standard Deviation 49.3 fL (36.4-46.3); Red Blood Count 5.11 M/uL (4.7-6.1); White Blood Count 10.04 K/uL (4.8-10.8)
[2018-11-21] MEDS: ALBUT/IPRATROP 3MG/0.5MG NEB 3 ML VIAL NEB SCH ×3 (06:56→15:15)
[2018-11-21 07:10] LABS: BUN Creatinine Ratio 14.1 (10-20); Calcium 8.3 mg/dl (8.5-10.1); Creatinine Clr Calc Pharmacy 110.1 ml/min; Est GFR (African American) 126.6; Est GFR (Non-African American) 109.3; Potassium 3.9 mmol/L (3.5-5.1)
[2018-11-21] MEDS: NSS + 20MEQ KCL 20 MEQ/1,000 ML BAG IV SCH (08:47)
[2018-11-21] MEDS: FLUDROCORTISONE ACETATE 0.1 MG TAB PO SCH (08:49)
[2018-11-21] MEDS: methylPREDNISolone 40 MG in SYRINGE 0 ML IV SCH ×2 (08:53→17:55)
[2018-11-21] MEDS: HEPARIN SOD 5,000 UNIT/0.5 ML VIAL SQ SCH ×2 (08:58→22:00)
[2018-11-21] MEDS ORDERED: FLUTICASONE PROPIONATE NA SPR 16 GM BTL SCH (09:00)
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
[2018-11-21] MEDS ORDERED: MIDAZOLAM HCL 5 MG/ML VIAL IV ONE (15:42)
[2018-11-21] MEDS ORDERED: ETOMIDATE 2 MG/ML 20 ML VIAL IV ONE (15:42)
[2018-11-21] MEDS ORDERED: ROCURONIUM BROMIDE 10 MG/ML 10 ML VIAL IV ONE (15:42)
--- NOTE | 2018-11-21 17:18 | Pulmonary Consultation ---
Date of Consultation November 21, 2018 Assessment & Plan (1) GERD (gastroesophageal reflux disease): Impression: 1. Chronic aspiration. Acute event occurred in the similar manner. Additional risk factors including history of GERD, TBI, multiple falls and dementia. 2. Likely the patient has history of COPD, he has history of more than 30-pack- year smoking. He has been on bronchodilators as an outpatient as well. 3. Acute on chronic hypercapnic respiratory failure. The hypoxia patient has secondary to above. 4. Dementia. Plan: 1. Agree with cefepime. 2. Add Flagyl. 3. Discontinue Levaquin. 4. Continue with steroids for possible acute lung injury. 5. Obtain a stat chest x-ray. 6. Agree with bronchodilators. 7. Start the patient on OptiFlow. 8. I agree with BiPAP as needed. 9. The patient had VBG, obtaining an ABG would be helpful. However his corrected pH is 7.39. The patient is a chronic retainer with a PCO2 of 70. Thank you, will follow. Esophagitis presence: esophagitis presence not specified Qualified Code(s): K21.9 - Gastro-esophageal reflux disease without esophagitis History of Present Illness Reason for Consultation: Acute hypoxic respiratory failure. Requesting Physician: Dr. Levin. Attending Physician: Rios Levin MD History of Present Illness Dear Dr. Levin: Thank you for your kind referral of Mr. Jarrett to pulmonary service. This is 63 -year-old gentleman with a history of traumatic brain injury, recurrent aspiration, obstructive sleep apnea, dementia, on 2 L of oxygen at the half-way, history of smoking quit 9 years ago according to him, presented to the hospital with increased lethargy and multiple falls. The patient did have similar presentation where he was admitted to the hospital in 2015 as well as in November 2017. The patient was started on oxygen as his O2 saturation was in the 70s. He was transferred to the emergency room for further evaluation. The patient was admitted to the hospital 24 hours ago with a diagnosis of acute on chronic respiratory failure secondary to aspiration pneumonia. The patient is a poor historian, could not give me any history, he was already placed on the BiPAP, he was evaluated earlier for oxygen mask where he did well for a period of time then he has to be placed back again on the BiPAP due to O2 saturation showing 85%. The patient himself denies any shortness of breath, no pain, he did not have any cough, he did not open his eyes to answer my questions , I am not sure about his baseline. When I interviewed him, his O2 saturation was reading 86-92% on 60% via the BiPAP. The patient was in his left side sleeping. Social history consistent with history of smoking quit 9 years ago according to him. Family history is not obtainable. Allergies Allergy/AdvReac Type Severity Reaction Status Date / Time Penicillins Allergy Unknown Unknown Verified 11/20/18 16:45 Home Medications Home Medications Medication Instructions Recorded Confirmed Type Prune/Stewed Prunes 1 dose PO DIRECTED PRN 11/20/18 11/20/18 History acetaminophen 650 mg PO Q4H PRN 11/20/18 11/20/18 History albuterol sulfate [ProAir HFA] 2 puff INHALATION QID 11/20/18 11/20/18 History atorvastatin 20 mg PO PM 11/20/18 11/20/18 History bisacodyl [Dulcolax (bisacodyl)] 10 mg NM DIRECTED PRN 11/20/18 11/20/18 History donepezil 10 mg PO HS 11/20/18 11/20/18 History fludrocortisone 0.1 mg PO BID 11/20/18 11/20/18 History fluticasone 2 spray INTRANASAL QAM 11/20/18 11/20/18 History magnesium hydroxide [Milk of 30 ml PO DIRECTED PRN 11/20/18 11/20/18 History Magnesia] oxymetazoline [Nasal Decongestant 2 spray INTRANASAL QAM 11/20/18 11/20/18 History (oxymetazl)] paroxetine HCl [Paxil] 10 mg PO HS 11/20/18 11/20/18 History ranitidine HCl 150 mg PO HS 11/20/18 11/20/18 History sodium phosphates [Fleet Enema] 1 ea NM DIRECTED PRN 11/20/18 11/20/18 History Patient History Medical History TBI (traumatic brain injury) (Chronic) Dementia (Chronic) Impulse control disorder, unspecified (Chronic) SAJI on CPAP (Chronic) HLD (hyperlipidemia) (Chronic) Chronic respiratory failure with hypoxia 2 L NC O2 Surgical History H/O esophagogastroduodenoscopy (Chronic) H/O colonoscopy (Chronic) History of tracheostomy Family History Other Essential hypertension Heart disease Kidney stones Lung disease Social History marital status details: single; briefly earlier in life; no children Current Living Situation: Shelter current occupational status: disabled Feels Safe at Home: Yes Smoking Status: Unknown if ever smoked Communication Ability: Impaired Review of Systems Review of systems not obtainable. Physical Exam 2 Vital Signs (Past 24 Hours): Last Vital Signs Temp 36.5 C 11/21/18 15:46 Pulse 59 L 11/21/18 16:39 Resp 24 11/21/18 16:39 BP 107/55 L 11/21/18 15:46 Pulse Ox 90 11/21/18 16:39 Physical Exam: Vital signs are stable, S1-S2 regular rate and rhythm, lungs with rhonchi bilaterally, abdomen is soft and benign, previous scar from tracheostomy tube, trace edema in the periphery. Neurologically difficult to assess. Results & Data Laboratory Results His labs were reviewed which showed no leukocytosis, no bandemia, no left shift. BMP showed elevated bicarb which has been chronically elevated. Diagnostic Findings Chest x-ray showed bilateral consolidation, CAT scan of the chest from 2016 showed similar findings, COPD changes noted, mild lymphadenopathy.
--- NOTE | 2018-11-21 17:59 | XRay Report ---
SINGLE VIEW CHEST CLINICAL HISTORY: Respiratory failure. FINDINGS: An AP, portable, upright chest radiograph is compared to study dated 11/20/2018 and correlat ed with chest CT dated 01/25/2016. The examination is degraded by portable technique and patient rotat ion. The cardiomediastinal silhouette is unremarkable. There is left basilar consolidation with a sm all to moderate left pleural effusion. Atelectasis is noted at the right lung base. No pneumothorax i s seen. The bony thorax is grossly intact. Scoliosis is noted in the thoracic spine. IMPRESSION: 1. There is left basilar consolidation with associated pleural effusion. The appearance suggests pneu monia. Clinical correlation will be required and radiographic follow-up to resolution is recommended. 2. Atelectasis is noted at the right lung base. Electronically signed by: Uriel Smith M.D. 11/21/2018 5:57 PM
[2018-11-21] MEDS ORDERED: metroNIDAZOLE 500 MG/100 ML BAG IV SCH (18:00)
[2018-11-21 18:35] LABS: iSTAT Allen Test Pass; iSTAT Arterial Blood Gas HCO3 31 meg/L (19-24); iSTAT Carbon Dioxide 33 mEq/l (24-31); iSTAT FiO2 100 %
[2018-11-21] MEDS ORDERED: RAPID SEQUENCE INDUCTION BAG ONE (18:52)
[2018-11-21] MEDS ORDERED: LEVOFLOXACIN/D5W 750 MG/150 ML BAG IV SCH (19:00)
[2018-11-21] MEDS ORDERED: MIDAZOLAM HCL 125MG/250ML D5W ONE (19:21)
[2018-11-21] MEDS: fentaNYL DRIP 1,250 MCG/250 ML BAG IV SCH (19:30)
[2018-11-21] MEDS: MIDAZOLAM HCL 125 MG/250 ML BAG IV SCH (19:30)
[2018-11-21 21:51] LABS: iSTAT Allen Test Pass; iSTAT Arterial Blood Gas HCO3 31 meg/L (19-24); iSTAT Carbon Dioxide 32 mEq/l (24-31); iSTAT FiO2 100 %
--- NOTE | 2018-11-22 00:20 | Critical Care Progress Note ---
Date of Service November 22, 2018 Assessment & Plan (1) GERD (gastroesophageal reflux disease): Impression: 1. Chronic aspiration. Acute event occurred in the similar manner. Additional risk factors including history of GERD, TBI, multiple falls and dementia. 2. Likely the patient has history of COPD, he has history of more than 30-pack- year smoking. He has been on bronchodilators as an outpatient as well. 3. Acute on chronic hypercapnic respiratory failure. The hypoxia patient has secondary to above. 4. Dementia. Plan: 1. Agree with cefepime. 2. Add Flagyl. 3. Discontinue Levaquin. 4. Continue with steroids for acute lung injury. 5. Ventilator management 6. VAP bundle 7. Soft restraints 8. Bronchoscopy was done showing large amount of aspirated material all suctioned to clear. 9. Discussed with the sister Twila over the phone in details. 10. Discussed with the staff on rounds and details. Critical care time spent with the patient was 90 minutes excluding procedure time. Subjective The patient become more hypoxic and could not tolerate the BiPAP, taken off the BiPAP and placed on oxygen his O2 saturation was barely 91% and he was tachypneic. The patient appeared to be very somnolent. I have spoken to his sister Twila over the phone and she mentioned that she is the closest person to him however occasionally he makes decision for himself. He does have history of early dementia. The sister is in favor of doing aggressive measures in the moment. The patient when I spoke to him, he mentioned that he did not want intubation however due to shortness of breath he decided to go with aggressive measures as well. Patient was transferred to the ICU and underwent intubation and a bronchoscopy. Physical Exam 2 Vital Signs (Past 24 Hours): Last Vital Signs Temp 36.5 C 11/21/18 15:46 Pulse 57 L 11/21/18 17:15 Resp 24 11/21/18 17:15 BP 107/55 L 11/21/18 15:46 Pulse Ox 83 L 11/21/18 17:43 Physical Exam: The patient was in respiratory distress, his O2 saturation on 100% nonrebreather was 92%. His PO2 was 60 on 100%. He is using accessory muscles, becoming more lethargic, S1-S2 regular rate and rhythm, bilateral crackles, abdomen is soft, no edema, cachexia. Neurologically difficult to assess. Results & Data Laboratory Results Labs were reviewed which showed normal white count, and ABG showed 7.3 // 31 after intubation. BUN and creatinine is 8 and 0.5. Diagnostic Findings Chest x-ray post intubation was noted for bibasilar infiltrates. Support the ET tube. _ (1) GERD (gastroesophageal reflux disease) Esophagitis presence: esophagitis presence not specified Qualified Code(s): K21.9 - Gastro-esophageal reflux disease without esophagitis
--- NOTE | 2018-11-22 00:29 | Procedure Note ---
Procedure Note Date of Service November 22, 2018 Note Intubation was done due to acute respiratory failure, failed BiPAP, the patient was consented verbally to the procedure, his sister Twila also consented for the procedure over the phone, the patient was placed in supine position, using Ambu bag his oxygenation improved to 95%, received 12 mg of etomidate, 2 mg of Versed, 50 mg of rocuronium, using #3 MAC and #8 ET tube, the tube was placed to 24 cm. End-tidal CO2 was yellow. Equal breath sounds. The tube was secured and chest x-ray confirmed the position. No immediate complication. Thank you for all involved in assistance.
--- NOTE | 2018-11-22 00:31 | Procedure Note ---
Procedure Note Date of Service November 22, 2018 Note Bronchoscopy was done at the bedside due to radha aspiration, the patient was already been intubated and sedated with #8 ET tube. Consent was obtained from the sister over the phone. I agreed to the procedure. Patient also was notified about the procedure prior to extubation. The bronchoscope passed through #8 ET tube using blue adapter. The patient was monitored in the ICU with ICU style of monitoring. The findings on the bronchoscopy was as follows: 1. Large amount of secretions was noted occluding most of the subsegments of the airways. 2. Specimen was obtained from the right lower lobe. 3. Total amount of BAL injected was 60 mL and suctioned all to clear. 4. Specimen was sent for cultures. 5. The ET tube was adjusted after that to 3 cm above the hoda. 6. The bronchoscopy was removed and the patient tolerated the procedure very well, no evidence of hypoxia throughout the procedure. Thank you for all involved in this procedure.
[2018-11-22] MEDS ORDERED: SODIUM CHLORIDE 0.9% 1000ML 1,000 ML IV SCH (01:00)
[2018-11-22] MEDS: CEFEPIME 1,000 MG in SYRINGE 0 ML IV SCH ×2 (02:07→14:44)
[2018-11-22] MEDS: ALBUT/IPRATROP 3MG/0.5MG NEB 3 ML VIAL NEB SCH ×5 (05:21→19:25)
[2018-11-22] MEDS: methylPREDNISolone 40 MG in SYRINGE 0 ML IV SCH ×2 (05:58→20:47)
[2018-11-22] MEDS: metroNIDAZOLE 500 MG/100 ML BAG IV SCH ×3 (06:32→20:47)
--- NOTE | 2018-11-22 06:43 | XRay Report ---
XR chest 1V portable CLINICAL HISTORY: Respiratory failure COMPARISON STUDY: 11/21/2018 FINDINGS: There is been interval placement of an endotracheal tube which is positioned 4.5 cm above t he hoda. There is been interval placement of a nasogastric tube which passes into the stomach. Ther e is a persistent left pleural effusion with associated left lower lobe atelectasis/consolidation. Th ere is mild central vascular prominence.[ IMPRESSION: 1. Left pleural effusion and associated left lower lobe consolidative changes 2. Endotracheal tube 4.5 cm above the hoda. Nasogastric tube within the stomach Electronically signed by: Salbador Mckeon M.D. 11/22/2018 6:42 AM
[2018-11-22 07:56] LABS: Hematocrit (blood only) 45.4 % (42-52); Hemoglobin 14.6 g/dL (14.0-18.0); Immature Granulocytes # (auto) 0.01 K/uL (0.00-0.02); Immature Granulocytes % (auto) 0.1 %; Lymphocytes # (auto) 1.06 K/uL (1.2-3.4); Lymphocytes % (auto) 14.1 %; Mean Corpuscular Hgb Conc 32.2 g/dL (32-36); Mean Corpuscular Volume 91.3 fL (80-100); Mean Platelet Volume 10.4 fL (7.4-10.4); Monocytes # (auto) 0.32 K/uL (0.11-0.59); Monocytes % (auto) 4.3 %; Neutrophils # (auto) 6.13 K/uL (1.4-6.5); Neutrophils % (auto) 81.5 %; Platelet Count 115 K/uL (130-400); RDW Coefficient of Variation 15.3 % (11.5-14.5); Red Blood Count 4.97 M/uL (4.7-6.1); White Blood Count 7.52 K/uL (4.8-10.8)
[2018-11-22 08:22] LABS: BUN Creatinine Ratio 24.2 (10-20); Calcium 8.3 mg/dl (8.5-10.1); Est GFR (African American) 129.4; Est GFR (Non-African American) 111.6; Magnesium 2.5 mg/dl (1.8-2.4); Phosphorus 1.8 mg/dl (2.5-4.9); Potassium 3.6 mmol/L (3.5-5.1)
[2018-11-22] MEDS: HEPARIN SOD 5,000 UNIT/0.5 ML VIAL SQ SCH ×2 (08:56→21:07)
[2018-11-22] MEDS ORDERED: POTASSIUM PHOS 3 MMOL/1 ML INFUSION IV STA (09:23)
[2018-11-22] MEDS: NSS + 20MEQ KCL 20 MEQ/1,000 ML BAG IV SCH (09:27)
[2018-11-22] MEDS ORDERED: POTASSIUM PHOSPHATE 30 MMOL in SODIUM CHLORIDE 0.9% 500 ML IV ONE (09:30)
[2018-11-22] MEDS ORDERED: PHARMACY GLYCEMIC MGMT CONSULT SCH (09:47)
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
[2018-11-22 10:31] LABS: iSTAT Allen Test Pass; iSTAT Arterial Blood Gas HCO3 28 meg/L (19-24); iSTAT Carbon Dioxide 30 mEq/l (24-31); iSTAT FiO2 60 %
[2018-11-22] MEDS ORDERED: IMPACT LIQD 1.0 CAL 1,000 ML BAG OG SCH (10:45)
[2018-11-22 11:24] LABS: Estimated Average Glucose 120 mg/dl
--- NOTE | 2018-11-22 12:22 | Critical Care Progress Note ---
Date of Service November 22, 2018 Assessment & Plan (1) GERD (gastroesophageal reflux disease): Impression: 1. Acute on chronic aspiration. Multiple risk factors including history of GERD, TBI, multiple falls and dementia. 2. COPD with exacerbation, intubated, he has history of more than [id number] smoking. He has been on bronchodilators as an outpatient as well. 3. Acute on chronic hypercapnic respiratory failure. 4. Dementia. 5. History of TBI in 1982. With history of tracheostomy back then. 6. Developing thrombocytopenia, still above 100. Plan: 1. Continue cefepime and Flagyl. 2. Follow bronchoscopy culture results. 3. No need for atypical coverage. 4. Continue with steroids for acute lung injury. 5. Ventilator management 6. VAP bundle 7. Soft restraints 8. Obtain ABG. 9. Vent management, decrease FiO2 to 80%. Obtain ABG. 10. Glycemic control consult, appreciate pharmacy input. 11. Replace potassium and phosphorus. 12. Discussed with the staff on rounds and details. 13. No spontaneous breathing trial today. 14. Will update the family once they are at the bedside. Critical care time spent with the patient was 90 minutes excluding procedure time. Subjective The patient remains intubated and sedated, review of systems not obtainable. No events overnight. Physical Exam 2 Vital Signs (Past 24 Hours): Last Vital Signs Temp 36.7 C 11/22/18 04:00 Pulse 86 11/22/18 11:15 Resp 12 11/22/18 11:15 BP 100/63 11/22/18 06:00 Pulse Ox 92 11/22/18 11:15 Physical Exam: Vital signs are stable, S1-S2 regular rate and rhythm, lungs are rhonchorous, abdomen is benign, no edema. Neurologically the patient is sedated. Results & Data Laboratory Results CBC was normal today, BMP is also within acceptable range. He is ABG showed 7.4 4/42/58/20 8/91%. Glucose is well controlled. Diagnostic Findings No new imaging. _ (1) GERD (gastroesophageal reflux disease) Esophagitis presence: esophagitis presence not specified Qualified Code(s): K21.9 - Gastro-esophageal reflux disease without esophagitis
[2018-11-22] MEDS: INSULIN HUMAN REGULAR SC SCH ×2 (12:48→16:56)
--- NOTE | 2018-11-22 14:07 | Pharmacy Report ---
Pharmacy Glycemic Short Note 2 - Date of Service November 22, 2018 - Glycemic Short BSG Results (Last 24 hours): 11/22/18 11/22/18 07:47 12:24 Glucose 141 H POC Glucose 98 OUTPATIENT ANTIDIABETIC REGIMEN: * n/a * A1c = 5.8% 11/22/18 ASSESSMENT: * Patient admitted to ICU w/ acute respiratory failure, COPD exac, aspiration pneumonia * Currently intubated receiving IV ABX and steroid therapy * BSGs at goal thus far, however patient does have A1c in "pre-diabetes" range and is at risk for steroid/stress induced hyperglycemia * Fasting BSGs mildly elevated x 2 days * He is starting tube feeds today so will add modest carb coverage in the form of Regular insulin Q 6 hrs as it has best p'kinetic profile for this * Will add low dose Lantus scale as well should BSGs climb rapidly PLAN FOR INPATIENT GLYCEMIC CONTROL: * Basal insulin * Lantus SQ BID per scale * 0 units if BSG less than 140 * 6 units if BSG 140-180 * 10 units if BSG above 180 * Bolus insulin * REGULAR INSULIN per scale Q6hrs * Goal Range: Low 120 mg/dL - High 140 mg/dL * Correction Factor: 25 mg/dL/unit * Nutritional / Prandial insulin per carb ratio of 1 unit per 20 grams CHO consumed - please cover carbs in tube feeds
[2018-11-22] MEDS: SODIUM CHLORIDE 0.9% 1000ML 1,000 ML IV SCH ×3 (15:30→23:05)
[2018-11-22] MEDS ORDERED: DOPAMINE / D5W 400 MG/250 ML BAG IV STA (15:35)
[2018-11-22] MEDS ORDERED: DOPamine 400MG / 250ML D5W IV ONE (15:37)
[2018-11-22] MEDS ORDERED: NOREPINEPHRINE BIT INJ 8 MG in DEXTROSE 5% 500 ML IV SCH (16:00)
--- NOTE | 2018-11-22 16:05 | Procedure Note ---
Procedure Note Date of Service November 22, 2018 Note A line was placed in the left radial area, done by my resident John Price, I was present throughout the entire procedure, the procedure was done emergently due to the patient being hypotensive, consent was deferred. The procedure was done under ultrasound, under strict sterile field, the skin was prepped with chlorhexidine, one attempt, using Seldinger technique, the line was sutured with one surgical suture and connected to the transducer, a waves were noted. Tolerated the procedure very well. No immediate complication. Hand examination is normal.
--- NOTE | 2018-11-22 16:06 | Procedure Note ---
Procedure Note Date of Service November 22, 2018 Note Central line was placed in the right subclavian area, done emergently due to hypotension, and the need for pressors. Consent was deferred. The patient was already been intubated and sedated. The skin was prepped with chlorhexidine, under strict sterile field, using OR style, the skin was injected with 5 mL of 1 % lidocaine, the procedure was done by my student John Price, I was present throughout the entire procedure. Using Seldinger technique, no scalpel , only a dilator, the line was placed to 15 cm, and secured with 2 sutures, all ports were flushed, covered with surgical dressing, chest x-ray is pending. No immediate complication, tolerated the procedure very well. Thank you
--- NOTE | 2018-11-22 16:31 | XRay Report ---
SINGLE VIEW CHEST CLINICAL HISTORY: Central venous catheter placement. FINDINGS: 2 AP, portable, upright chest radiographs are compared to study dated 11/21/2018 and correla gt with chest CT dated 01/25/2016. The examination is significantly degraded by portable technique an d patient rotation. Endotracheal and enteric tubes are unchanged in position. A right subclavian agustin tral venous catheter has been placed. The tip projects over the SVC. The cardiomediastinal silhouette is unremarkable. There is left basilar consolidation with a small to moderate left pleural effusion. Atelectasis is noted at the right lung base. No pneumothorax is seen. Left-sided rib fractures are n oted. Scoliosis is noted in the thoracic spine. IMPRESSION: 1. A right subclavian central venous catheter has been placed as above. No pneumothorax is seen post procedure. 2. Left basilar consolidation and left pleural effusion are unchanged from previous. 3. The right lung appears clear. Electronically signed by: Uriel Smith M.D. 11/22/2018 4:30 PM
[2018-11-22] MEDS: fentaNYL DRIP 1,250 MCG/250 ML BAG IV SCH (23:30)
[2018-11-23] MEDS: MIDAZOLAM HCL 125 MG/250 ML BAG IV SCH (00:48)
[2018-11-23] MEDS: INSULIN GLARGINE SOLOSTAR 100 UNITS/ML 3 ML PEN SC SCH ×3 (01:10→23:47)
[2018-11-23] MEDS: INSULIN HUMAN REGULAR SC SCH ×2 (01:12→06:41)
[2018-11-23] MEDS: CEFEPIME 1,000 MG in SYRINGE 0 ML IV SCH ×2 (02:38→13:57)
[2018-11-23] MEDS ORDERED: DOPAMINE / D5W 400 MG/250 ML BAG IV PRN (02:40)
[2018-11-23] MEDS: SODIUM CHLORIDE 0.9% 1000ML 1,000 ML IV SCH ×5 (03:07→16:00)
[2018-11-23 04:50] LABS: Hematocrit (blood only) 42.9 % (42-52); Hemoglobin 14.1 g/dL (14.0-18.0); Mean Corpuscular Hgb Conc 32.9 g/dL (32-36); Mean Corpuscular Volume 90.7 fL (80-100); Mean Platelet Volume 9.4 fL (7.4-10.4); Platelet Count 127 K/uL (130-400); RDW Standard Deviation 50.4 fL (36.4-46.3); Red Blood Count 4.73 M/uL (4.7-6.1); White Blood Count 11.31 K/uL (4.8-10.8)
[2018-11-23 05:08] LABS: BUN Creatinine Ratio 20.9 (10-20); Calcium 7.3 mg/dl (8.5-10.1); Creatinine Clr Calc Pharmacy 120.3 ml/min; Est GFR (African American) 131.3; Est GFR (Non-African American) 113.3; Magnesium 2.1 mg/dl (1.8-2.4); Potassium 3.3 mmol/L (3.5-5.1)
[2018-11-23] MEDS: metroNIDAZOLE 500 MG/100 ML BAG IV SCH ×3 (05:42→21:30)
[2018-11-23] MEDS: methylPREDNISolone 40 MG in SYRINGE 0 ML IV SCH ×2 (06:24→18:34)
[2018-11-23] MEDS: ALBUT/IPRATROP 3MG/0.5MG NEB 3 ML VIAL NEB SCH ×4 (07:46→19:39)
[2018-11-23 07:50] LABS: iSTAT Arterial Blood Gas HCO3 29 meg/L (19-24); iSTAT Carbon Dioxide 30 mEq/l (24-31); iSTAT FiO2 50 %
[2018-11-23] MEDS: HEPARIN SOD 5,000 UNIT/0.5 ML VIAL SQ SCH ×2 (10:57→21:30)
[2018-11-23 13:27] LABS: iSTAT Arterial Blood Gas HCO3 28 meg/L (19-24); iSTAT Carbon Dioxide 29 mEq/l (24-31); iSTAT FiO2 40 %
--- NOTE | 2018-11-23 14:27 | Pharmacy Report ---
PHA: Glycemic Control AP - Date of Service November 23, 2018 - Assessment & Plan Assessment * 63 yo M in ICU for respiratory failure * Not diabetic at baseline but requiring insulin 2nd physiologic stress * BSG's increased significantly when tubefeeds initiated. * Will tighten CHO ratio * Regular insulin q6h was appropriate initially, but now that patient's BSG's would like to increase checks to q4h. Will therefore also switch insulin from regular insulin to Novolog to prevent stacking * OK to continue tubefeeds despite pressor (dopamine) requirement as this is being used for *bradycardia* and not hypotension therefore ischemic gut not anticipated Plan * Basal insulin: Lantus 0-10 units every 12 hours, depending on BSG * Correctional Insulin: Novolog Correction per scale ACHS Goal Range: Low 120 mg/dL - High 170 mg/dL Correction Factor: 25 mg/dL/unit * Prandial insulin: Per carb ratio of 1 unit per 14 grams CHO consumed Pharmacy will continue to monitor patient daily and write orders per [facility] inpatient glycemic control protocol. Thanks. * Please note that the plan above was derived based on current level of insulin resistance and hospital stress. These recommendations are appropriate for inpatient admission only. Plan of care upon discharge will need to be reassessed to avoid potential outpatient hypo/hyperglycemia.
[2018-11-23] MEDS: INSULIN ASPART 100 UNITS/ML 3 ML PEN SC SCH ×3 (14:41→21:29)
[2018-11-23] MEDS ORDERED: POTASSIUM PHOS 3 MMOL/1 ML INFUSION IV STA (15:30)
[2018-11-23] MEDS ORDERED: POTASSIUM PHOSPHATE 30 MMOL in SODIUM CHLORIDE 0.9% 500 ML IV ONE (15:45)
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
[2018-11-23] MEDS ORDERED: PROPOFOL IV EMULSION 10 MG/ML 100 ML VIAL IV ONE (23:20)
[2018-11-23] MEDS ORDERED: PROPOFOL 1,000 MG/100 ML VIAL IV PRN (23:20)
[2018-11-23] MEDS: fentaNYL DRIP 1,250 MCG/250 ML BAG IV SCH (23:23)
[2018-11-24] MEDS: INSULIN ASPART 100 UNITS/ML 3 ML PEN SC SCH ×6 (01:15→19:45)
[2018-11-24] MEDS: CEFEPIME 1,000 MG in SYRINGE 0 ML IV SCH ×2 (01:42→14:45)
[2018-11-24] MEDS: SODIUM CHLORIDE 0.9% 1000ML 1,000 ML IV SCH (04:29)
[2018-11-24 04:35] LABS: Hemoglobin 11.9 g/dL (14.0-18.0); Mean Corpuscular Hgb Conc 32.2 g/dL (32-36); Mean Corpuscular Volume 90.7 fL (80-100); Mean Platelet Volume 10.3 fL (7.4-10.4); Platelet Count 101 K/uL (130-400); RDW Coefficient of Variation 15.9 % (11.5-14.5); RDW Standard Deviation 52.4 fL (36.4-46.3); Red Blood Count 4.08 M/uL (4.7-6.1); White Blood Count 6.29 K/uL (4.8-10.8)
[2018-11-24 05:10] LABS: Albumin Globulin Ratio 0.9 (0.9-2); Albumin Level 1.9 gm/dl (3.4-5.0); BUN Creatinine Ratio 28.5 (10-20); Bilirubin,Total 0.2 mg/dl (0.2-1); Calcium 7.1 mg/dl (8.5-10.1); Creatinine Clr Calc Pharmacy 126.7 ml/min; Est GFR (African American) 129.4; Est GFR (Non-African American) 111.6; Globulin 2.1 gm/dl (2.5-4.0); Potassium 4.1 mmol/L (3.5-5.1)
[2018-11-24] MEDS: metroNIDAZOLE 500 MG/100 ML BAG IV SCH ×3 (05:20→21:39)
[2018-11-24 05:57] LABS: iSTAT Allen Test Pass; iSTAT Arterial Blood Gas HCO3 25 meg/L (19-24); iSTAT Carbon Dioxide 26 mEq/l (24-31); iSTAT FiO2 40 %
[2018-11-24] MEDS: fentaNYL DRIP 1,250 MCG/250 ML BAG IV SCH (06:32)
[2018-11-24] MEDS: ALBUT/IPRATROP 3MG/0.5MG NEB 3 ML VIAL NEB SCH ×4 (07:25→19:22)
[2018-11-24] MEDS: HEPARIN SOD 5,000 UNIT/0.5 ML VIAL SQ SCH ×2 (07:41→19:49)
[2018-11-24] MEDS: methylPREDNISolone 40 MG in SYRINGE 0 ML IV SCH ×3 (07:43→19:22)
--- NOTE | 2018-11-24 08:18 | Pharmacy Report ---
Pharmacy Glycemic Short Note 2 - Date of Service November 24, 2018 - Glycemic Short BSG Results (Last 24 hours): 11/23/18 11/23/18 11/23/18 11:39 14:44 21:27 Glucose POC Glucose 193 H 135 H 133 H 11/23/18 11/24/18 11/24/18 23:52 04:25 04:35 Glucose 165 H POC Glucose 155 H 144 H 11/24/18 07:39 Glucose POC Glucose 139 H OUTPATIENT ANTIDIABETIC REGIMEN: * n/a * A1c = 5.8% 11/22/18 Assessment * 63 yo M in ICU for respiratory failure * BSG's ranging 133-144 mg/dL over the last 24 hours * Not diabetic at baseline but requiring insulin 2nd physiologic stress * BSG's increased significantly when tubefeeds initiated 11/22 PM. Tubefeeds increased to 50 mL/hr overnight, but now on hold for possible extubation this AM * Despite planned extubation, will not make significant changes to regimen as patient is still on methyplrednisolone 40 mg IV q12h, and CHO ratio is already looser than estimated per calculator weight-based moderate stress. Will very slightly decrease Lantus scale. Plan * Basal insulin: Lantus every 12 hours, depending on BSG * 0 units for BSG less than 140 mg/dL * 5 units for BSG 140-180 mg/dL * 10 units for BSG greater than 180 mg/dL * Correctional Insulin: Novolog Correction per scale ACHS Goal Range: Low 120 mg/dL - High 170 mg/dL Correction Factor: 25 mg/dL/unit * Prandial insulin: Per carb ratio of 1 unit per 14 grams CHO consumed Pharmacy will continue to monitor patient daily and write orders per [facility] inpatient glycemic control protocol. Thanks.
--- NOTE | 2018-11-24 08:43 | XRay Report ---
XR chest 1V portable HISTORY: 63 years-old Male follow resp failure due to aspiration acute respiratory failure COMPARISON: Chest radiograph 11/22/2018 TECHNIQUE: Portable AP view of the chest FINDINGS: Cardiac silhouette is normal in size. Endotracheal tube overlies the midline, 3.7 cm superior to the hoda. Catheter about the right internal jugular vein distribution appears unchanged. Enteric tube i s noted with distal tip coursing below the level the diaphragm. No pneumothorax. Progressive bilateral pleural effusions with bibasilar opacities. Bones appear gross ly intact. Sigmoidal scoliosis of the spine. IMPRESSION: 1. Lines and tubes placement as above. 2. Progressive bilateral pleural effusions with bibasilar opacities suggestive of atelectasis and/or pneumonitis. The above report was generated using voice recognition software. It may contain grammatical, syntax o r spelling errors. Electronically signed by: Benji Campuzano M.D. 11/24/2018 8:42 AM
[2018-11-24] MEDS ORDERED: FUROSEMIDE 40 MG in SYRINGE 0 ML IV ONE ×2 (08:45→15:00)
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
[2018-11-24] MEDS ORDERED: HydrALAZINE HCL 20 MG/ML VIAL IV PRN (09:34)
[2018-11-24] MEDS: DEXMEDETOMIDINE HCL 200 MCG in SODIUM CHLORIDE 0.9% 48 ML IV SCH ×3 (09:47→19:19)
[2018-11-24] MEDS: INSULIN GLARGINE SOLOSTAR 100 UNITS/ML 3 ML PEN SC SCH (11:52)
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
[2018-11-24 23:28] LABS: iSTAT Arterial Blood Gas HCO3 32 meg/L (19-24); iSTAT Carbon Dioxide 34 mEq/l (24-31); iSTAT FiO2 100 %
[2018-11-24] MEDS: DEXMEDETOMIDINE HCL 400 MCG in 0.9 % SODIUM CHLORIDE 96 ML IV PRN (23:57)
[2018-11-25] MEDS: INSULIN GLARGINE SOLOSTAR 100 UNITS/ML 3 ML PEN SC SCH (00:07)
[2018-11-25] MEDS: INSULIN ASPART 100 UNITS/ML 3 ML PEN SC SCH ×6 (00:07→19:37)
[2018-11-25] MEDS: CEFEPIME 1,000 MG in SYRINGE 0 ML IV SCH ×2 (02:02→15:43)
[2018-11-25 04:45] LABS: Hematocrit (blood only) 44.4 % (42-52); Hemoglobin 14.5 g/dL (14.0-18.0); Mean Corpuscular Hgb Conc 32.7 g/dL (32-36); Mean Corpuscular Volume 88.6 fL (80-100); Mean Platelet Volume 10.4 fL (7.4-10.4); Platelet Count 111 K/uL (130-400); RDW Coefficient of Variation 15.4 % (11.5-14.5); RDW Standard Deviation 49.5 fL (36.4-46.3); Red Blood Count 5.01 M/uL (4.7-6.1); White Blood Count 6.16 K/uL (4.8-10.8)
[2018-11-25 05:02] LABS: BUN Creatinine Ratio 28.6 (10-20); Creatinine Clr Calc Pharmacy 152.6 ml/min; Est GFR (African American) 139.1; Magnesium 2.1 mg/dl (1.8-2.4); Potassium 3.5 mmol/L (3.5-5.1)
[2018-11-25] MEDS: metroNIDAZOLE 500 MG/100 ML BAG IV SCH ×3 (05:29→22:40)
[2018-11-25] MEDS: DEXMEDETOMIDINE HCL 400 MCG in 0.9 % SODIUM CHLORIDE 96 ML IV PRN ×3 (06:16→19:20)
[2018-11-25] MEDS: ALBUT/IPRATROP 3MG/0.5MG NEB 3 ML VIAL NEB SCH ×4 (07:17→19:44)
--- NOTE | 2018-11-25 07:21 | XRay Report ---
XR chest 1V portable CLINICAL HISTORY: 63 years-old Male presenting with follow up effusion. TECHNIQUE: Portable upright AP view of the chest was obtained. COMPARISON: 11/24/2018. FINDINGS: Right subclavian central venous line terminates in the mid SVC. The endotracheal tube has been remove d as has the nasogastric tube. Numerous external leads project over the right hemithorax degrading ev aluation. Cardiomediastinal silhouette normal. Moderate bilateral layering pleural effusions with extensive bib asilar opacity. Fluid suggested in the right minor fissure. No pneumothorax. Old fracture deformities of left lateral rib suggested. Dextroscoliosis of the upper thoracic spine. IMPRESSION: 1. Interval extubation. 2. Moderate bilateral layering pleural effusions with extensive passive atelectasis of the lung base s. Electronically signed by: Sergio Villanueva M.D. 11/25/2018 7:20 AM
[2018-11-25] MEDS: HEPARIN SOD 5,000 UNIT/0.5 ML VIAL SQ SCH ×2 (08:45→20:22)
[2018-11-25] MEDS ORDERED: DEXTROSE 5% 1,000 ML IV SCH (09:15)
[2018-11-25] MEDS ORDERED: INSULIN GLARGINE SOLOSTAR 100 UNITS/ML 3 ML PEN SC ONE (09:30)
--- NOTE | 2018-11-25 09:36 | Pharmacy Report ---
Pharmacy Glycemic Short Note 2 - Date of Service November 25, 2018 - Glycemic Short BSG Results (Last 24 hours): 11/24/18 11/24/18 11/24/18 11:32 15:07 19:35 Glucose POC Glucose 144 H 145 H 126 H 11/25/18 11/25/18 11/25/18 00:03 04:18 04:36 Glucose 144 H POC Glucose 128 H 127 H 11/25/18 08:44 Glucose POC Glucose 113 H OUTPATIENT ANTIDIABETIC REGIMEN: * n/a * A1c = 5.8% 11/22/18 Assessment * 63 yo M in ICU for respiratory failure. Not diabetic at baseline but requiring insulin 2nd physiologic stress * Stressors * Extubated 11/24 AM * Impact discontinued 2nd no OG - has not been running since 11/24 AM * Methylprednisolone continues at 40 mg IV q12h * D5 80 mL/hr x1L (from ~[id number] today) initiated 2nd hypernatremia * BSG's ranging 113-145 mg/dL over the last 24 hours - excellent control. However, will slightly adjust regimen based on initiation of D5 infusion * Will give Lantus 5 units x1 now (at the time of initiation of D5 infusion) * Will lower goal range on Novolog to correct increased BSG's sooner * Will loosen correction factor as this was appropriate for higher goal range but may over-correct now that goal range has been decreased Plan * Basal insulin: Lantus 5 units x1 now, then ongoing BID depending on BSG * 0 units for BSG less than 160 mg/dL * 5 units for BSG 160 mg/dL or greater * Correctional Insulin: Novolog Correction per scale ACHS Goal Range: Low 120 mg/dL - High 150 mg/dL Correction Factor: 30 mg/dL/unit * Prandial insulin: Per carb ratio of 1 unit per 14 grams CHO consumed Pharmacy will continue to monitor patient daily and write orders per [facility] inpatient glycemic control protocol. Thanks.
[2018-11-25] MEDS ORDERED: MIDAZOLAM HCL 5 MG/ML 1 ML VIAL ONE (10:00)
[2018-11-25] MEDS ORDERED: MIDAZOLAM HCL 5 MG/ML 1 ML VIAL IV ONE (10:25)
[2018-11-25] MEDS ORDERED: fentaNYL citrate 100 MCG/2 ML VIAL IV STA (10:25)
[2018-11-25] MEDS ORDERED: ATROPINE SULFATE 0.1 MG/ML 10ML SYR IV ONE (10:31)
[2018-11-25] MEDS ORDERED: OPTIRAY 320 125ml IV PRN (12:21)
[2018-11-25 12:27] LABS: Mononuclear WBC Pleural 60.8 %; Polynuclear WBC Pleural 39.2 %; RBC Pleural Fluid (A) 164000 /uL; Source Pleural Fluid RIGHT LUNG; WBC Pleural Fluid (A) 66 /uL
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
[2018-11-25] MEDS ORDERED: LIDOCAINE 4% INH SOLN 4 ML BTL INH ONE (12:51)
--- NOTE | 2018-11-25 12:58 | CT Scan Report ---
CT chest wo con CLINICAL HISTORY: 63 years-old Male presenting with hemothorax, etiology? hx of recent fall. TECHNIQUE: Multidetector CT imaging of the chest was performed without the use of intravenous contras t. IV contrast: None. A dose lowering technique was used consistent with the principles of ALARA (as low as reasonably achievable). COMPARISON: CTA chest from 01/25/2016. CT DOSE (mGy.cm): The estimated cumulative dose is 944.80 mGy.cm. FINDINGS: Greenskeeper Supervisor topogram: Weighted feeding catheter containing a guidewire terminates at the GE junction. On soft tissue windows, thyroid not visualized. Central venous line terminates in the SVC. Left gynec omastia. No axillary, supraclavicular, or mediastinal lymphadenopathy. Evaluation of the duong limited without intravenous contrast. Minimal atherosclerosis of aortic arch. Normal heart size. Trace right and small left pleural effusions. No pericardial effusion. Focal wall thickening of the hepatic flex ure of the colon (series 6 image 237). Surrounding fluid in the retroperitoneum and portions pouch. C alcification or surgical clips noted along the posterior left hepatic lobe. On lung windows, no pneumothorax. Extensive bibasilar volume loss and consolidation with complete col lapse of the left lower lobe and near complete collapse of the right lower lobe. Extensive atelectasi s of the right middle lobe. Exclusion of the apices from the [id number] limiting evaluation of thi s region. No focal infiltrate or nodule in the aerated lung. On bone windows, acute segmental fractures of the posterior right 10th and 11th ribs. Mild anterior v ertebral body height loss of T12 concerning for compression deformity. This is new from prior exam. IMPRESSION: 1. Acute segmental fractures of the right 10th and 11th ribs. No pneumothorax. 2. Acute mild compression fracture of T12. 3. Significant atelectasis with complete or near complete collapse of the left lower, right middle, right lower lobes. 4. Focal wall thickening of the hepatic flexure of the colon concerning for underlying neoplasm. Fol low-up colonoscopy recommended. Please see separately dictated CT of the abdomen or pelvis. The report will be called/faxed according to standard departmental protocol. Electronically signed by: Sergio Villanueva M.D. 11/25/2018 12:57 PM
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
--- NOTE | 2018-11-25 17:40 | XRay Report ---
XR KUB CLINICAL HISTORY: 63 years-old Male presenting with NG feeding tube advanced. TECHNIQUE: Single semierect view of the lower chest and upper abdomen was obtained. COMPARISON: Chest x-ray from earlier today. FINDINGS: Interval placement of a weighted feeding catheter containing a guidewire, which terminates in the bod y the stomach. Nonobstructive bowel gas pattern. No gross pneumoperitoneum. Excreted contrast may be present within the urinary collecting systems. Osseous structures normal. Bibasilar opacities left greater than right. IMPRESSION: 1. Weighted feeding catheter containing guidewire terminates in the stomach; advancement recommended . 2. Bibasilar atelectasis and effusions. Electronically signed by: Sergio Villanueva M.D. 11/25/2018 5:39 PM
--- NOTE | 2018-11-25 17:48 | Procedure Note ---
Procedure Note Date of Service November 25, 2018 Note Thoracentesis was done at the bedside due to persistent and increasing pleural effusion on the right side, under ultrasound guidance, noted the pleural effusion on the right, very minimal on the left, consent earlier was obtained from the sister Twila, confirmed with the nursing staff, agreed to the procedure. The patient was placed in the right lateral position, at the level of the eighth intercostal space posteriorly, the skin was prepped with chlorhexidine under strict sterile field, injected with 10 mL of 1% lidocaine, using scalpel and Seldinger technique, the catheter was introduced into the right pleural cavity, total amount of 200 mL of blood was removed, the catheter was removed and pressure was applied for 2 minutes at the insertion site, no immediate complication, no evidence of pneumothorax, tolerated the procedure very well. Thank you for all involved.
--- NOTE | 2018-11-25 17:53 | Procedure Note ---
Procedure Note Date of Service November 25, 2018 Note Bronchoscopy was done at the bedside, consent obtained from the sister Twila over the phone, risk and benefit explained details, agreed to the procedure. The patient was already in the ICU and monitored throughout the entire procedure with ICU style of monitoring. The patient was on the BiPAP and placed on facemask 10 L, the patient was given lidocaine neb 5 mL of 4%. Using a bite block, the bronchoscope passed through the bite-block into the oral cavity, the patient monitored and received moderate sedation with fentanyl of 50 mics and Versed 2 mg total. Injectable lidocaine through the bronchoscope was given with total of 10 mL of 1%. Timeout was performed by the nursing staff. Findings as follows: 1. Large amount of thick secretions occluding the opening of the vocal cords suctioned all to clear. 2. Vocal cords were mobile. 3. Nasal trumpet was noted in the left nostril. Extending towards the hypopharynx. 4. Subglottic stenosis secondary to deformity of the tracheal cartilages from previous tracheostomy with granulation tissue causing severe stenosis measuring approximately 3 mm, it was dynamic rather than static. 5. The tracheobronchial tree examined to the sub-�subsegmental level, large amount of secretions were noted occluding the right lower lobe and left lower lobe with its branches. 6. Specimen was sent for culture again. 7. The bronchoscope was removed entirely and the patient tolerated the procedure well. The patient did have a brief. Requiring ambo bagging due to hypoxia from secretions occluding at the vocal cord. No immediate complication, tolerated the procedure well.
[2018-11-25] MEDS: IMPACT LIQD 1.0 CAL 1,000 ML BAG NG SCH (18:16)
[2018-11-25] MEDS: methylPREDNISolone 40 MG in SYRINGE 0 ML IV SCH (18:17)
[2018-11-26] MEDS: INSULIN GLARGINE SOLOSTAR 100 UNITS/ML 3 ML PEN SC SCH ×2 (00:16→11:28)
[2018-11-26] MEDS: INSULIN ASPART 100 UNITS/ML 3 ML PEN SC SCH ×6 (00:17→19:53)
[2018-11-26] MEDS: DEXMEDETOMIDINE HCL 400 MCG in 0.9 % SODIUM CHLORIDE 96 ML IV PRN ×4 (01:14→19:57)
[2018-11-26] MEDS: CEFEPIME 1,000 MG in SYRINGE 0 ML IV SCH ×2 (02:08→13:40)
[2018-11-26 04:30] LABS: Hematocrit (blood only) 45.5 % (42-52); Hemoglobin 15.3 g/dL (14.0-18.0); Immature Granulocytes # (auto) 0.04 K/uL (0.00-0.02); Immature Granulocytes % (auto) 0.6 %; Mean Corpuscular Hgb Conc 33.6 g/dL (32-36); Mean Corpuscular Volume 88.3 fL (80-100); Mean Platelet Volume 10.3 fL (7.4-10.4); Monocytes # (auto) 0.34 K/uL (0.11-0.59); Monocytes % (auto) 5.3 %; Neutrophils # (auto) 5.14 K/uL (1.4-6.5); Neutrophils % (auto) 80.1 %; Platelet Count 109 K/uL (130-400); RDW Coefficient of Variation 14.8 % (11.5-14.5); RDW Standard Deviation 47.8 fL (36.4-46.3); Red Blood Count 5.15 M/uL (4.7-6.1); White Blood Count 6.42 K/uL (4.8-10.8)
[2018-11-26 04:47] LABS: BUN Creatinine Ratio 24.9 (10-20); Calcium 8.1 mg/dl (8.5-10.1); Creatinine Clr Calc Pharmacy 140.6 ml/min; Est GFR (African American) 134.5; Magnesium 2.2 mg/dl (1.8-2.4); Potassium 3.9 mmol/L (3.5-5.1)
[2018-11-26 04:48] LABS: Phosphorus 1.9 mg/dl (2.5-4.9)
[2018-11-26] MEDS: metroNIDAZOLE 500 MG/100 ML BAG IV SCH ×2 (06:00→13:40)
[2018-11-26] MEDS: ALBUT/IPRATROP 3MG/0.5MG NEB 3 ML VIAL NEB SCH ×3 (07:15→17:24)
[2018-11-26] MEDS: methylPREDNISolone 40 MG in SYRINGE 0 ML IV SCH ×2 (07:54→19:48)
[2018-11-26] MEDS: HEPARIN SOD 5,000 UNIT/0.5 ML VIAL SQ SCH ×2 (07:54→21:02)
--- NOTE | 2018-11-26 07:54 | XRay Report ---
XR chest 1V portable CLINICAL HISTORY: follow up right hemothorax COMPARISON STUDY: 11/25/2018 FINDINGS: There is a nasogastric tube within the stomach. There is a right subclavian central venous catheter with the superior vena cava. There is a persistent left pleural effusion with associated lef t basilar atelectasis/consolidation. There is interval decrease in the size the right pleural effusio n with improved aeration of the right lower lobe. Multiple left-sided rib fractures are again evident . IMPRESSION: 1. Persistent left pleural effusion with associated left basilar atelectasis/consolidation 2. Improving aeration of the right lung base. Electronically signed by: Salbador Mckeon M.D. 11/26/2018 7:52 AM
--- NOTE | 2018-11-26 08:50 | Palliative Care Consultation ---
Date of Consultation November 26, 2018 Assessment & Plan (1) Goals of care, counseling/discussion: -63 year old male with PMH traumatic brain injury in 1980s, impulse control disorder related to the TBI, lives in prison for many years, SAJI requiring CPAP, and others, presented to the hospital six days ago with acute on chronic respiratory failure due to pneumonia. Patient was placed on BIPAP and admitted, he continued to decompensate and required intubation in the ICU. Bronchoscopy was performed on 11/22 showing multiple mucous plugs. Patient was continued on abx, nebulizer treatments and steroids. He required pressors for his blood pressure which have since been discontinued. Patient was successfully extubated on 11/24, but his mental status remained altered with impulsive behavior. He was started on Precedex gtt and BIPAP. He developed large right sided pleural effusions which was tapped on 11/25 for 200ml bloody fluid. Waiting for pathology to see if it is malignant. During an CT scan, an incidental finding of a 4cm hepatic flexure colonic mass was discovered as well , concerning for malignancy. Patient�s respiratory and mental status not impvoing. Palliative care consulted to discuss goals of care. -Patient is lethargic, opens eyes but not following commands. Unable to participate in converstion. -Spoke with patient�s sister, Twila. She states that at baseline, patient requires a good bit of help with daily activities at the prison. She states in the last six weeks, his health and strength have deteriorated greatly. He became wheelchair bound. His mental state waxed and waned. -Patient�s sister, Twila, stated that even if this colonic mass could be cancerous, she would not want to make her brother go through with invasive testing, procedures or treatment. She did note that he had a colonoscopy in the past, about a year and a half ago, at which time he had a lesion of some sort removed and they warned her it could put him at higher risk for developing colon cancer (this is reported by sister). -At this time, continue with current care, but no escalation in care. Twila does have siblings who are not involved in patient�s care, but she will reach out to them. (2) Acute on chronic respiratory failure with hypoxia and hypercapnia: (3) Metabolic encephalopathy: (4) TBI (traumatic brain injury): Encounter type: sequela Loss of consciousness presence/duration: with LOC of unspecified duration Qualified Code(s): S06.9X9S - Unspecified intracranial injury with loss of consciousness of unspecified duration, sequela (5) Pneumonia: Aspiration pneumonia type: Laterality: unspecified laterality Lung location: unspecified part of lung Pneumonia type: due to unspecified organism Qualified Code(s): J18.9 - Pneumonia, unspecified organism (6) Dysphagia: Dysphagia type: unspecified Qualified Code(s): R13.10 - Dysphagia , unspecified (7) Mass of hepatic flexure of colon: Supervising Physician Co-Signing Physician Notes Late entry for exam on 11/26 Chart reviewed, pt examined , pt's sister and brother in law at bedside Pt seen with ICU attending. Pt's sister, Twila Delong, states she has discussed decision to remove BiPAP with siblings - I verified that she is the spokes person with her sister , Dianne Valderrama [phone] Chart reviewed, pt examnined PE: pt minimally responsive,m NAD Resp: diminished lung sounds CV: bradycardic - HR 38-40 Abd: not distended Neuro: minimally responsive to voice/touch Plan to remove BiPAP and move towards comfort care Agree with above note, assessment and plan as per SCOTT Man History of Present Illness Requesting Physician: Dr. Stack Attending Physician: Srinivas Mathew MD, PhD, [facility] History of Present Illness This 63 year old male patient with PMH TBI and impulse control disorder,who lives at [facility] for many years, presented with bilateral pneumonia. Patient decompensated and required intubation in the ICU. He underwent bronchoscopy x2 and CT of abd which showed incidential 4cm colon mass. He also had thoracentesis done which draine 200ml blood. Patient is rather debilitated and frail at baseline. Palliative care has been consulted to discuss goals of care. See A&P for details Thank you kindly for this consult. We will follow. Allergies Allergy/AdvReac Type Severity Reaction Status Date / Time Penicillins Allergy Unknown Unknown Verified 11/20/18 16:45 Home Medications Home Medications Medication Instructions Recorded Confirmed Type Prune/Stewed Prunes 1 dose PO DIRECTED PRN 11/20/18 11/20/18 History acetaminophen 650 mg PO Q4H PRN 11/20/18 11/20/18 History albuterol sulfate [ProAir HFA] 2 puff INHALATION QID 11/20/18 11/20/18 History atorvastatin 20 mg PO PM 11/20/18 11/20/18 History bisacodyl [Dulcolax (bisacodyl)] 10 mg LA DIRECTED PRN 11/20/18 11/20/18 History donepezil 10 mg PO HS 11/20/18 11/20/18 History fludrocortisone 0.1 mg PO BID 11/20/18 11/20/18 History fluticasone 2 spray INTRANASAL QAM 11/20/18 11/20/18 History magnesium hydroxide [Milk of 30 ml PO DIRECTED PRN 11/20/18 11/20/18 History Magnesia] oxymetazoline [Nasal Decongestant 2 spray INTRANASAL QAM 11/20/18 11/20/18 History (oxymetazl)] paroxetine HCl [Paxil] 10 mg PO HS 11/20/18 11/20/18 History ranitidine HCl 150 mg PO HS 11/20/18 11/20/18 History sodium phosphates [Fleet Enema] 1 ea LA DIRECTED PRN 11/20/18 11/20/18 History Patient History Medical History TBI (traumatic brain injury) (Chronic) Dementia (Chronic) Impulse control disorder, unspecified (Chronic) SAJI on CPAP (Chronic) HLD (hyperlipidemia) (Chronic) Chronic respiratory failure with hypoxia 2 L NC O2 Surgical History H/O esophagogastroduodenoscopy (Chronic) H/O colonoscopy (Chronic) History of tracheostomy Family History Other Essential hypertension Heart disease Kidney stones Lung disease Social History marital status details: single; briefly earlier in life; no children Current Living Situation: Assisted current occupational status: disabled Feels Safe at Home: Yes Smoking Status: Unknown if ever smoked Hx Substance Use: No Communication Ability: Impaired Review of Systems Unable to obtain due to altered mental status Physical Exam 2 Vital Signs (Past 24 Hours): Last Vital Signs Temp 36.2 C L 11/26/18 08:00 Pulse 45 L 11/26/18 08:00 Resp 14 11/26/18 08:00 BP 134/70 11/26/18 08:00 Pulse Ox 94 11/26/18 08:00 Constitutional: + frail appearing ENMT: external ear and nose normal, oropharynx normal Neck: normal visual inspection and trachea midline Respiratory: normal respiratory effort, lungs clear to auscultation Auscultation: + diminished lung sounds (Bases) Cardiovascular: RRR, no murmur, no edema Gastrointestinal (Abdomen): Inspection/Auscultation: abdomen normal to inspection and normal bowel sounds Percussion/Palpation: abdomen soft Neurologic: awake (Lethargic on precedex gtt) Time Spent Midlevel 70 minutes with greater than 50% of time spent at bedside with patient and on phone with patient�s sister discussing condition and goals of care. Attending Spent 45 min in addition to time spent by MERCHANDISING COORDINATOR for a total of 115 min with > 50 % of time spent at bedside assisting with medical decision making and providing support to family
[2018-11-26] MEDS ORDERED: INSULIN GLARGINE SOLOSTAR 100 UNITS/ML 3 ML PEN SC ONE (09:00)
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
[2018-11-26] MEDS ORDERED: POTASSIUM PHOS 3 MMOL/1 ML INFUSION IV STA (11:42)
[2018-11-26] MEDS ORDERED: POTASSIUM PHOSPHATE 21 MMOL in SODIUM CHLORIDE 0.9% 500 ML IV ONE (12:00)
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
[2018-11-26] MEDS ORDERED: MoRPHine SULF/NSS 250 MG/250 ML BTL IV SCH (16:52)
[2018-11-26] MEDS: IMPACT LIQD 1.0 CAL 1,000 ML BAG NG SCH (17:24)
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
[2018-11-26] MEDS ORDERED: PARoxetine HCl 10 MG TAB PO SCH (21:00)
[2018-11-26] MEDS ORDERED: ATORVASTATIN 20 MG TAB NG SCH (21:00)
[2018-11-26] MEDS ORDERED: DONEPEZIL HCL 10 MG TAB NG SCH (21:00)
[2018-11-27] MEDS: INSULIN GLARGINE SOLOSTAR 100 UNITS/ML 3 ML PEN SC SCH
[2018-11-27] MEDS: INSULIN ASPART 100 UNITS/ML 3 ML PEN SC SCH ×3 (00:55→10:08)
[2018-11-27] MEDS: DEXMEDETOMIDINE HCL 400 MCG in 0.9 % SODIUM CHLORIDE 96 ML IV PRN ×2 (03:26→10:51)
[2018-11-27 04:52] LABS: Hematocrit (blood only) 45.8 % (42-52); Hemoglobin 15.1 g/dL (14.0-18.0); Immature Granulocytes # (auto) 0.06 K/uL (0.00-0.02); Immature Granulocytes % (auto) 0.8 %; Lymphocytes # (auto) 0.99 K/uL (1.2-3.4); Lymphocytes % (auto) 12.8 %; Mean Corpuscular Volume 89.3 fL (80-100); Mean Platelet Volume 10.4 fL (7.4-10.4); Monocytes # (auto) 0.42 K/uL (0.11-0.59); Monocytes % (auto) 5.4 %; Neutrophils # (auto) 6.25 K/uL (1.4-6.5); Platelet Count 130 K/uL (130-400); RDW Coefficient of Variation 15.1 % (11.5-14.5); Red Blood Count 5.13 M/uL (4.7-6.1); White Blood Count 7.72 K/uL (4.8-10.8)
[2018-11-27 05:09] LABS: BUN Creatinine Ratio 34.3 (10-20); Calcium 8.3 mg/dl (8.5-10.1); Creatinine Clr Calc Pharmacy 152.6 ml/min; Est GFR (African American) 139.1; Magnesium 2.4 mg/dl (1.8-2.4); Phosphorus 2.3 mg/dl (2.5-4.9); Potassium 3.7 mmol/L (3.5-5.1)
[2018-11-27] MEDS ORDERED: INSULIN ASPART 100 UNITS/ML 3 ML PEN SC SCH (09:22)
[2018-11-27] MEDS: methylPREDNISolone 40 MG in SYRINGE 0 ML IV SCH (10:08)
[2018-11-27] MEDS: HEPARIN SOD 5,000 UNIT/0.5 ML VIAL SQ SCH (10:09)
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
[2018-11-27] MEDS ORDERED: LORazepam 1 MG/2 ML VIAL IV PRN ×2 (13:15→14:01)
[2018-11-27] MEDS ORDERED: LORazepam 2 MG/4 ML VIAL ONE (13:20)
[2018-11-27] MEDS ORDERED: HALOPERIDOL LACTATE 5 MG/ML 1 ML VIAL ONE (13:44)
[2018-11-27] MEDS ORDERED: HALOPERIDOL LACTATE 5 MG/ML 1 ML VIAL IM STA (13:44)
[2018-11-27] MEDS ORDERED: HALOPERIDOL LACTATE 5 MG/ML 1 ML VIAL IM PRN (13:45)
--- NOTE | 2018-11-27 13:45 | Progress Note ---
DATE: 11/27/2018 Mr. Jarrett has remained fairly stable off the ventilator. His family has decided that we will not be aggressive in working up either his colonic mass or considering any tracheal surgery. At this point, I will sign off. Would be glad to see him back at any time.
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
[2018-11-27] MEDS ORDERED: MoRPHine SULFATE 5 MG/0.25 ML UDP PO PRN (14:01)
[2018-11-27] MEDS ORDERED: ACETAMINOPHEN 1000 MG/100 ML IV IV PRN (14:09)
[2018-11-27] MEDS ORDERED: ACETAMINOPHEN 1000 MG/100 ML IV IV ONE (14:10)
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
[2018-11-27] MEDS ORDERED: MoRPHine SULFATE 10 MG/0.5 ML UDP PO PRN (17:27)
[2018-11-27] MEDS ORDERED: OLANZAPINE ZYDIS 10 MG ORALLY DIS. TAB PO SCH (21:00)
[2018-11-27] MEDS ORDERED: PARoxetine HCl 20 MG TAB PO SCH (21:00)
[2018-11-27] MEDS ORDERED: DONEPEZIL HCL 10 MG TAB PO SCH (21:00)
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
--- NOTE | 2018-11-30 08:13 | Coding Query ---
SEPSIS To promote full compliance with coding requirements relating to patient care, physician participation is requested in all cases of assistant auditor uncertainty. Please assist us with the question(s) below: In responding to this query, please exercise your independent professional judgement. The fact that a question is asked does not imply that any particular answer is desired or expected. We appreciate your clarification on this issue. Coding Question: The following was documented in the PN beginning 11/26, " Metabolic encephalopathy, likely secondary to infection and sepsis". Please clarify below, to the best of your knowledge, if it was present on admission. Thank you! (x) possible Sepsis, present on admission () Sepsis, NOT present on admission but developed during stay () Sepsis, ruled-out () Other, explain MTDD
== END 2018-11-27 23:00 | disposition expired | DRG 871 ==
LOC: ED 16:01 → SUATTDRO 19:33 → 2E 19:33 → 1E 11-21 18:30 → 4E 11-27 13:59